=== PATIENT | male | born 1950 | race Caucasian/White ===

== ENCOUNTER 2021-12-21 12:25 | Outpatient (REF) | payer MEDICARE, SELFPAY ==
[2021-12-21 13:44] LABS: Anion Gap 14 (12-20); Blood Urea Nitrogen 16 mg/dL (9-16); Carbon Dioxide 26 mmol/L (22-29); Chloride 106 mmol/L (96-108); Estimated Glomerular Filt Rate > 60; Glucose Fasting 90 mg/dL (60-99); Potassium 5.2 mmol/L (3.3-5.1); Sodium 141 mmol/L (135-145)
[2021-12-21 14:38] LABS: Folate 14.4 ng/mL (> or = 4.0); Vitamin B12 258 pg/mL (200-900)
[2021-12-23 14:37] LABS: IgA 134 mg/dL (70-320); IgG 672 mg/dL (600-1540); IgM 71 mg/dL (50-300)
== END 2021-12-21 12:26 | disposition home or self-care (01) ==
LOC: HO.LAB 12:25
PROVIDERS: PCP Psychiatry & Neurology Neurology; Visit Provider Internal Medicine
DX: G62.9 Polyneuropathy, unspecified (principal)
CPT/HCPCS: 36415; 80048; 82607; 82746; 82784; 86334

== ENCOUNTER 2022-12-22 08:35 | Outpatient (REF) | payer MEDICARE, SELFPAY ==
[2022-12-22 08:57] LABS: MANUAL DIFF FLAG NO
[2022-12-22 09:08] LABS: Basophils Percent Auto 0.6 % (0-2); Eosinophils Absolute Auto 0.1 X10*3/uL (0.0-0.4); Eosinophils Percent Auto 2.8 % (0-4); Hematocrit 39.8 % (42.0-52.0); Hemoglobin 13.4 g/dl (14.0-18.0); Imm Gran Abs Auto 0.02 X10*3/uL (0.00-0.03); Imm Gran Pct Auto 0.4 % (0.0-0.4); Lymphocytes Percent Auto 19.5 % (20-40); Mean Corpuscular HGB Conc 33.7 g/dl (31.0-36.0); Mean Corpuscular Hemoglobin 30.5 pg (27.0-33.0); Mean Corpuscular Volume 90.7 fL (80.0-98.0); Mean Platelet Volume 11.5 fL (9.4-12.4); Monocytes Absolute Auto 0.4 X10*3/uL (0.1-1.2); Monocytes Percent Auto 7.3 % (2-11); Neutrophils Absolute Auto 3.4 x10*3/uL (2.0-8.3); Neutrophils Percent Auto 69.4 % (45-73); Platelet Count 229 X10*3/uL (160-400); Red Blood Count 4.39 X10*6/uL (4.60-5.80); Red Cell Distribution Width 12.4 % (11.0-16.0); White Blood Count 4.9 X10*3/uL (4.8-10.8)
[2022-12-22 10:03] LABS: Blood Urea Nitrogen 9 mg/dL (9-16); Estimated Glomerular Filt Rate > 60
[2022-12-22 10:09] LABS: TSH reflex Free T4 1.02 uIU/mL (0.32-4.0)
== END 2022-12-22 08:36 | disposition home or self-care (01) ==
LOC: HO.LAB 08:35
PROVIDERS: PCP Internal Medicine; Visit Provider Internal Medicine Gastroenterology
DX: K57.33 Diverticulitis of large intestine without perforation or abscess with bleeding (principal); R19.7 Diarrhea, unspecified
CPT/HCPCS: 36415; 82565; 84443; 84520; 85025

== ENCOUNTER 2022-12-25 13:41 | Outpatient (REF) | payer MEDICARE, SELFPAY ==
[2022-12-25 15:08] LABS: Leukocytes Stool Qualitative FEW: < 2/OIF (NEGATIVE)
[2022-12-26 12:34] LABS: Adenovirus F 40/41 Not Detected (Not Detect.); Astrovirus Not Detected (Not Detect.); Campylobacter Not Detected (Not Detect.); Cryptosporidium Not Detected (Not Detect.); Cyclospora cayetanensis Not Detected (Not Detect.); E. coli EAEC Not Detected (Not Detect.); E. coli EPEC Not Detected (Not Detect.); E. coli ETEC Not Detected (Not Detect.); E. coli STEC Not Detected (Not Detect.); Entamoeba histolytica Not Detected (Not Detect.); Giardia lamblia Not Detected (Not Detect.); Norovirus GI/GII Not Detected (Not Detect.); Plesiomonas shigelloides Not Detected (Not Detect.); Rotavirus A Not Detected (Not Detect.); Salmonella Not Detected (Not Detect.); Sapovirus Not Detected (Not Detect.); Shigella sp./EIEC Not Detected (Not Detect.); Vibrio Not Detected (Not Detect.); Vibrio Cholerae Not Detected (Not Detect.); Yersinia enterocolitica Not Detected (Not Detect.)
[2022-12-29 22:49] LABS: Calprotectin, Fecal 545 mcg/g
== END 2022-12-25 13:42 | disposition home or self-care (01) ==
LOC: HO.LNP 13:41
PROVIDERS: Visit Provider Internal Medicine Gastroenterology
DX: K57.33 Diverticulitis of large intestine without perforation or abscess with bleeding (principal); R19.7 Diarrhea, unspecified
CPT/HCPCS: 83993; 87507; 89055

== ENCOUNTER 2023-01-01 12:23 | Outpatient (REF) | payer MEDICARE, SELFPAY ==
--- NOTE | ~2023-01-01 | CT_ITS ---
EXAMINATION: CT ABDOMEN AND PELVIS WITH CONTRAST CLINICAL INFORMATION: Diverticulitis of large intestine COMPARISON: None available. TECHNIQUE: Multidetector volumetric images were obtained from the superior aspect of the liver through the pubic symphysis following administration 85 mL of Omnipaque 350 intravenous contrast. Sagittal and coronal reformatted images were obtained on the technologist's workstation. Oral contrast: No This CT examination was performed using dose optimization techniques as appropriate, variously including the following: *Automated exposure control *Adjustment of mA and/or kV according to patient size (this includes techniques or standardized protocols for targeted exams where dose is matched to indication/reason for exam; i.e. extremities or head) *Use of iterative reconstruction technique DLP: 420 mGy-cm FINDINGS: LUNG BASES: The visualized lung bases are unremarkable. LIVER, GALLBLADDER, AND BILIARY TREE: There are multiple hepatic cysts. Other hepatic low density lesions are presumably cysts, though too small to characterize. The gallbladder is unremarkable with no evidence of radiopaque gallstones, gallbladder wall thickening, or obvious pericholecystic inflammatory changes. There is no biliary ductal dilatation. PANCREAS: Unremarkable. SPLEEN: Unremarkable. ADRENAL GLANDS: Unremarkable. KIDNEYS AND URETERS: The kidneys are normal in size, shape, and attenuation. No hydronephrosis, hydroureter, or calculi seen. No perinephric stranding. BLADDER: Unremarkable. GASTROINTESTINAL TRACT: There is extensive diverticulosis of the descending colon and sigmoid, extending for at least 20 cm. The mid sigmoid is circumferentially thickened. Perisigmoid infiltration is also evident adjacent to numerous diverticula. There are multiple clustered lymph nodes in the subtended sigmoid mesentery, the largest measuring 10 x 8 mm. The small bowel and appendix are unremarkable. The appendix. ABDOMINAL WALL: No significant hernia is appreciated. LYMPH NODES: As described above, there are multiple borderline size lymph nodes in the sigmoid mesentery subtended by the inflammatory process. There are additional mesenteric nodes measuring up to 12 x 10 mm. No upper abdominal or retroperitoneal adenopathy is evident. VASCULAR: Unremarkable. PELVIC VISCERA: Unremarkable. OSSEOUS STRUCTURES: The T11 vertebral body demonstrates coarsened trabecula with a pattern suggestive of intraosseous hemangioma. There are no suspicious bone lesions. Mild degenerative changes are noted in the lower lumbar spine. CT/CT abdomen pelvis w IV con IMPRESSION: 1. Considerable sigmoid diverticulosis with associated perisigmoid infiltration involving approximately 10 cm of mid sigmoid colon, consistent with acute sigmoid diverticulitis. No abscess or drainable collection. 2. Multiple sigmoid and adjacent mesenteric lymph nodes. Although perhaps reactive and related to diverticulitis, the presence of an underlying colonic neoplasm is not excluded particularly given the regional adenopathy. When the patient is clinically able, colonoscopy is recommended. 3. Findings discussed with Virgilio Brady MD at the time of interpretation on 01/04/2023 10:55 AM Fleischner guidelines were followed.
[2023-01-01] MEDS: iohexoL 350 MG/ML 100 ML INFUS..BTL 85 ML IV (14:50)
[2023-01-01] MEDS: Barium Sulfate Oral (Vanilla) 450 ML ORAL.SUSP 900 ML PO (14:51)
== END 2023-01-01 12:24 | disposition home or self-care (01) ==
LOC: HO.CT 12:23
PROVIDERS: PCP Internal Medicine; Visit Provider Internal Medicine Gastroenterology
DX: K57.33 Diverticulitis of large intestine without perforation or abscess with bleeding (principal)
CPT/HCPCS: 74177; Q9967

== ENCOUNTER 2023-01-16 11:00 | Day surgery (SDC) | payer MEDICARE, SELFPAY ==
[2023-01-12 10:04] VITALS: BMI 27.5
--- NOTE | 2023-01-15 08:57 | HO.ANESPROP2 ---
Documented by User: Nohelia Rojas NP 01/15/23 08:58 HPI - Anesthesia Eval Consult details Narrative: 72yo M for Upper Endoscopy and Colonoscopy [facility] Past Medical History Medical History Diverticulosis Barretts esophagus Depression HTN (hypertension) Surgical History Surgical History History of back surgery H/O colonoscopy History of esophagogastroduodenoscopy (EGD) Social History Patient Tobacco Use Status: Never used Tobacco Use of substances other than those prescribed or required for medical reasons: Yes Are you DNR?: No Advance Directives: No Advance Directives Information Provided: Yes Meds Allergies Allergy/AdvReac Type Severity Reaction Status Date / Time No Known Allergies Allergy Verified 01/12/23 09:58 Home Medications Medication Instructions Recorded Confirmed Last Taken Type bupropion HCl 150 mg 24 hr tablet, 150 mg PO QAM 01/12/23 01/12/23 Unknown History extended release carvedilol 25 mg tablet 25 mg PO BID 01/12/23 01/12/23 Unknown History cholecalciferol (vitamin D3) 25 25 mcg PO DAILY 01/12/23 01/12/23 Unknown History mcg (1,000 unit) tablet (Vitamin D3) omeprazole 20 mg capsule,delayed 20 mg PO DAILY 01/12/23 01/12/23 Unknown History release ramipril 10 mg capsule 10 mg PO BID 01/12/23 01/12/23 Unknown History Exam Height,Weight and Vital Signs: Height 5 ft 8 in Weight 82.1 kg Pertinent Lab Results Pertinent Lab Results: Laboratory Tests 12/22/22 08:55 WBC 4.9 Hgb 13.4 L Hct 39.8 L Plt Count 229 Assessment and Plan Assessment Anesthesia Assessment: Chart Reviewed Documented by User: Isela Rendon MD 01/16/23 11:37 [facility] Past Medical History Medical History Diverticulosis Barretts esophagus Depression HTN (hypertension) Surgical History Surgical History History of back surgery H/O colonoscopy History of esophagogastroduodenoscopy (EGD) History of Problems with Anesthesia: No Social History Patient Tobacco Use Status: Never used Tobacco Use of substances other than those prescribed or required for medical reasons: Yes Are you DNR?: No Advance Directives: No Advance Directives Information Provided: Yes Meds Allergies Allergy/AdvReac Type Severity Reaction Status Date / Time No Known Allergies Allergy Verified 01/12/23 09:58 Home Medications Medication Instructions Recorded Confirmed Last Taken Type bupropion HCl 150 mg 24 hr tablet, 150 mg PO QAM 01/12/23 01/12/23 Unknown History extended release carvedilol 25 mg tablet 25 mg PO BID 01/12/23 01/12/23 Unknown History cholecalciferol (vitamin D3) 25 25 mcg PO DAILY 01/12/23 01/12/23 Unknown History mcg (1,000 unit) tablet (Vitamin D3) omeprazole 20 mg capsule,delayed 20 mg PO DAILY 01/12/23 01/12/23 Unknown History release ramipril 10 mg capsule 10 mg PO BID 01/12/23 01/12/23 Unknown History Exam Airway Mallampati Class: II TM Dist: >3cm Neck ROM: Full Loose/Missing/Broken Teeth: No Heart: RRR Lungs: CTA Assessment and Plan Final Anesthetic Review History of Problems with Anesthesia: No NPO: Yes ASA Class: II Final Preanesthetic Review: Meds/Allgs Chart Reviewed, Consent Obtained/Reviewed and Anes Risks/Benef Reviewed Patient Risk: Low Procedure Risk: Intermediate Anesthetic Plan Anesthetic Plan: MAC: Disposition: Standard PACU
[2023-01-16 11:05] VITALS: BMI 26.5
[2023-01-16 11:20] VITALS: BP 147/86; PULSE 54; RESP 18; TEMP 36.1; O2SAT 99
--- NOTE | 2023-01-16 11:21 | P.HPSUR_ITS ---
Pre-Procedural Eval Section A Date of Service: 01/16/23 Section B Chief Complaint: Abnormal findings on diagnostic imaging of other p Details of Present Illness: see H&P no changes Relevant Family History (Specify if Yes): No Relevant Social History: None Present Medications: see Short Stay Collaborative assessment Medical History: No relevant PMH History of Previous Operations: No relevant previous surgery Allergies: Allergies Allergy/AdvReac Type Severity Reaction Status Date / Time No Known Allergies Allergy Verified 01/12/23 09:58 Review of Systems Sugical H&P ROS: Negative: Constitution, Cardiovascular, Respiratory, Neurol ogical, Psychiatric, Hem-Onc, Allergic/Immunologic, Gastrointestinal, Genitourinary, Musculoskeletal, Integumentary, Endocrine and Eyes/Ears/Nose/Throat Exam Surgical H&P Exam: Normal: HEENT, Normal: Heart, Normal: Lungs, Normal: Extremities, Normal: Abdomen, Normal: Skin and Normal: Neurological Plan Diagnosis/Plan: Unchanged I have reviewed the history and physical and performed a pertinent physical examination on my patient. No changes have occurred unless specified. Time Spent With Patient Time: Total time managing care of this patient today ____ minutes.
[2023-01-16] MEDS: Lactated Ringers 1,000 ML 100 ML IVCONT (11:25)
[2023-01-16 12:05] VITALS: BP 116/61; PULSE 49; RESP 18; TEMP 36.7; O2SAT 100
[2023-01-16 12:20] VITALS: BP 124/53; PULSE 53; RESP 18; TEMP 36.7; O2SAT 97
--- NOTE | 2023-01-16 12:46 | OP_ITS ---
DATE OF SERVICE: 01/16/2023 SURGEON: Virgilio Brady MD INDICATIONS: 1. Diverticulitis. 2. Diarrhea. PREOPERATIVE DIAGNOSIS: POSTOPERATIVE DIAGNOSIS: PROCEDURE PERFORMED: Upper endoscopy with biopsy, colonoscopy to the terminal ileum with biopsy. ESTIMATED BLOOD LOSS: COMPLICATIONS: ANESTHESIA: Monitored anesthesia care. ASSISTANTS: SPECIMENS: DESCRIPTION OF PROCEDURE: A history and physical was performed. The risks and benefits of the procedure were explained to the patient. Informed consent was obtained. The patient was placed in the left lateral decubitus position. The Olympus video gastroscope was introduced into the esophagus, stomach, and duodenum. Examination was performed. The scope was removed. He was repositioned for colonoscopy. A digital rectal exam was performed and was found to be normal. The Olympus pediatric video colonoscope was introduced into the rectum and advanced to the cecum. The cecum was identified by transillumination, palpation, and identification of ileocecal valve. Examination was performed. The scope was removed. He tolerated the procedure well and was returned to the recovery area in stable condition. FINDINGS: Upper endoscopy: 1. Esophagus: The esophagus showed an irregular EG junction. This was biopsied. There was no esophagitis. 2. Stomach: Showed multiple benign-appearing gastric polyps, 2 of these were biopsied. Antral biopsies were also obtained to rule out H pylori. 3. Duodenal: The bulb and second portion were normal. Second portion biopsies were obtained. Colonoscopy: The terminal ileum was briefly examined and appeared normal. This was biopsied. The visualized colonic mucosa showed changes of colitis beginning at about 40 cm from the anal verge and extending to the rectum. The changes were patchy and showed erythema, edema, and loss of vascular pattern as well as some punctate ulceration. Biopsies were obtained from the abnormal mucosa and from the remainder of the colon. There was moderate sigmoid diverticulosis. Retroflexed examination showed internal hemorrhoids. IMPRESSION: 1. Gastric polyps. 2. Colitis. RECOMMENDATION: Follow up the biopsy results. MD LINDA Connolly/JONYL / [id number]
== END 2023-01-16 13:05 | disposition home or self-care (01) ==
PROVIDERS: PCP Internal Medicine; Visit Provider Internal Medicine Gastroenterology
PROC: (CPT 43239; principal; 2023-01-16 13:00)
DX: K31.7 Polyp of stomach and duodenum (principal); K22.9 Disease of esophagus, unspecified; K52.9 Noninfective gastroenteritis and colitis, unspecified; K57.30 Diverticulosis of large intestine without perforation or abscess without bleeding; K64.8 Other hemorrhoids; K62.5 Hemorrhage of anus and rectum; R93.3 Abnormal findings on diagnostic imaging of other parts of digestive tract; K22.70 Barrett's esophagus without dysplasia; Z86.010 Personal history of colon polyps; I10 Essential (primary) hypertension
CPT/HCPCS: 43239; 45380; 88305; 88342; J2704

== ENCOUNTER 2023-03-21 10:23 | Outpatient (REF) | payer MEDICARE, SELFPAY ==
[2023-03-21 11:10] LABS: MANUAL DIFF FLAG NO
[2023-03-21 11:21] LABS: Basophils Percent Auto 0.4 % (0-2); Eosinophils Absolute Auto 0.1 X10*3/uL (0.0-0.4); Eosinophils Percent Auto 1.1 % (0-4); Hematocrit 39.2 % (42.0-52.0); Imm Gran Abs Auto 0.02 X10*3/uL (0.00-0.03); Imm Gran Pct Auto 0.4 % (0.0-0.4); Lymphocytes Percent Auto 20.8 % (20-40); Mean Corpuscular HGB Conc 33.2 g/dl (31.0-36.0); Mean Corpuscular Hemoglobin 30.1 pg (27.0-33.0); Mean Corpuscular Volume 90.7 fL (80.0-98.0); Mean Platelet Volume 11.6 fL (9.4-12.4); Monocytes Absolute Auto 0.4 X10*3/uL (0.1-1.2); Monocytes Percent Auto 8.4 % (2-11); Neutrophils Absolute Auto 3.2 x10*3/uL (2.0-8.3); Neutrophils Percent Auto 68.9 % (45-73); Platelet Count 193 X10*3/uL (160-400); Red Blood Count 4.32 X10*6/uL (4.60-5.80); Red Cell Distribution Width 12.2 % (11.0-16.0); White Blood Count 4.7 X10*3/uL (4.8-10.8)
[2023-03-21 11:54] LABS: Alanine Aminotransferase 14 U/L (0-40); Albumin Level 3.9 g/dL (3.5-5.0); Alkaline Phosphatase 72 U/L (39-117); Aspartate Amino Transferase 14 U/L (5-37); Bilirubin Direct 0.2 mg/dL (0.0-0.5); Bilirubin Total 0.7 mg/dL (0.0-1.0); Blood Urea Nitrogen 14 mg/dL (9-16); Estimated Glomerular Filt Rate > 60; Lipase 12 U/L (8-78); Total Protein 6.2 g/dL (6.5-8.0)
[2023-03-21 12:28] LABS: Erythrocyte Sedimentation Rate 5 MM/HR (0-15)
== END 2023-03-21 10:24 | disposition home or self-care (01) ==
LOC: HO.10HDL 10:23
PROVIDERS: Visit Provider Internal Medicine Gastroenterology
DX: K52.9 Noninfective gastroenteritis and colitis, unspecified (principal); R10.32 Left lower quadrant pain
CPT/HCPCS: 36415; 80076; 82565; 83690; 84520; 85025; 85652; 86140

== ENCOUNTER 2023-03-22 09:35 | Outpatient (REF) | payer MEDICARE, SELFPAY ==
[2023-03-27 22:12] LABS: Calprotectin, Fecal 103 mcg/g
== END 2023-03-22 09:36 | disposition home or self-care (01) ==
LOC: HO.LNP 09:35
PROVIDERS: Visit Provider Internal Medicine Gastroenterology
DX: K52.9 Noninfective gastroenteritis and colitis, unspecified (principal)
CPT/HCPCS: 83993

== ENCOUNTER 2023-03-26 12:00 | Outpatient (REF) | payer MEDICARE, SELFPAY ==
--- NOTE | ~2023-03-26 | CT_ITS ---
EXAMINATION: CT ABDOMEN AND PELVIS WITH CONTRAST CLINICAL INFORMATION: Colitis, left lower quadrant pain COMPARISON: 01/01/2023 TECHNIQUE: Multidetector volumetric images were obtained from the superior aspect of the liver through the pubic symphysis following administration 85 mL of Omnipaque 350 intravenous contrast. Sagittal and coronal reformatted images were obtained on the technologist's workstation. Oral contrast: No This CT examination was performed using dose optimization techniques as appropriate, variously including the following: *Automated exposure control *Adjustment of mA and/or kV according to patient size (this includes techniques or standardized protocols for targeted exams where dose is matched to indication/reason for exam; i.e. extremities or head) *Use of iterative reconstruction technique DLP: 389 mGy-cm FINDINGS: TIGHT ROPE WALKER: Nonobstructive bowel pattern. LUNG BASES: The visualized lung bases are unremarkable. Nonenlarged heart. No pericardial effusion. LIVER, GALLBLADDER, AND BILIARY TREE: The liver is normal in size, shape, and attenuation. Multiple low-density hepatic lesions again seen, largest measuring 2.1 cm with Hounsfield units consistent with cyst. No biliary ductal dilatation is present. The gallbladder is unremarkable with no evidence of radiopaque gallstones, gallbladder wall thickening, or obvious pericholecystic inflammatory changes. PANCREAS: Unremarkable. SPLEEN: Unremarkable. ADRENAL GLANDS: Unremarkable. KIDNEYS AND URETERS: The kidneys are normal in size, shape, and attenuation. No hydronephrosis or calculi seen. Too small to characterize bilateral renal hypodensities, likely cysts. No perinephric stranding. Mild mid to distal left ureteral prominence with question mild distal ureteral thickening, coronal 44/84. BLADDER: Diffuse thickening decompressed urinary bladder. GASTROINTESTINAL TRACT: Decompressed stomach likely accounting for wall thickening. No obstruction. Thickened terminal ileum likely due to under distention. No surrounding inflammatory change. Diffuse thickening of diverticular laden colon. Improved pericolonic inflammatory changes since previous study. ABDOMINAL WALL: Bilateral small fat filled inguinal hernias, left greater than right. LYMPH NODES: No pathologic retroperitoneal lymphadenopathy. Nonspecific mesenteric lymph nodes. VASCULAR: Mild atherosclerotic calcifications and soft plaque aorta and iliac arteries. Unremarkable inferior vena cava and iliac veins. Patent portal system. Mild prominence left mid to distal ureter. Mild distal left ureteral thickening not excluded, coronal 44/84. PELVIC VISCERA: Mildly prominent heterogeneous prostate with calcification. OSSEOUS STRUCTURES: T11 hemangioma. No suspicious osseous lesions. CT/CT abdomen pelvis w IV con IMPRESSION: Improved pericolonic inflammatory changes with persistent long segment sigmoid colonic thickening in the setting of extensive diverticulosis. Suspect smoldering diverticulitis. Mild left mid to distal ureteral prominence. Distal left ureteral thickening not excluded. Decompressed mildly thick-walled urinary bladder. Prominent heterogeneous calcification containing prostate. Follow-up of findings as clinically indicated. Hepatic and renal cysts. Fleischner guidelines were followed.
[2023-03-26] MEDS: iohexoL 350 MG/ML 75 ML INFUS..BTL 85 ML IV (14:58)
[2023-03-26] MEDS: Barium Sulfate Oral (Berry) 450 ML ORAL.SUSP 900 ML PO (14:58)
== END 2023-03-26 12:01 | disposition home or self-care (01) ==
LOC: HO.CT 12:00
PROVIDERS: Visit Provider Internal Medicine Gastroenterology
DX: R10.32 Left lower quadrant pain (principal); K52.9 Noninfective gastroenteritis and colitis, unspecified
CPT/HCPCS: 74177; Q9967

== ENCOUNTER 2024-01-02 10:20 | Outpatient (REF) | payer MEDICARE, SELFPAY ==
[2024-01-02 11:06] LABS: Hematocrit 36.4 % (42.0-52.0); Hemoglobin 12.3 g/dl (14.0-18.0); Mean Corpuscular HGB Conc 33.8 g/dl (31.0-36.0); Mean Corpuscular Hemoglobin 30.3 pg (27.0-33.0); Mean Corpuscular Volume 89.7 fL (80.0-98.0); Mean Platelet Volume 10.8 fL (9.4-12.4); Platelet Count 247 X10*3/uL (160-400); Red Blood Count 4.06 X10*6/uL (4.60-5.80); Red Cell Distribution Width 12.2 % (11.0-16.0)
[2024-01-02 12:06] LABS: Alanine Aminotransferase 23 U/L (0-40); Albumin Level 3.9 g/dL (3.5-5.0); Aspartate Amino Transferase 26 U/L (5-37); Bilirubin Direct 0.1 mg/dL (0.0-0.5); Bilirubin Total 0.4 mg/dL (0.0-1.0); Blood Urea Nitrogen 13 mg/dL (9-16); Estimated Glomerular Filt Rate > 60; Lipase 13 U/L (8-78); Total Protein 6.3 g/dL (6.5-8.0)
[2024-01-02 12:42] LABS: Alkaline Phosphatase 67 U/L (39-117)
== END 2024-01-02 10:21 | disposition home or self-care (01) ==
LOC: HO.LAB 10:20
PROVIDERS: PCP Internal Medicine; Visit Provider Internal Medicine Gastroenterology
DX: R10.32 Left lower quadrant pain (principal)
CPT/HCPCS: 36415; 80076; 82565; 83690; 84520; 85027

== ENCOUNTER 2024-01-10 13:28 | Outpatient (REF) | payer MEDICARE, SELFPAY ==
--- NOTE | ~2024-01-10 | CT_ITS ---
EXAMINATION: CT ABDOMEN AND PELVIS WITH CONTRAST CLINICAL INFORMATION: Left lower quadrant pain. COMPARISON: CT dated March 26, 2023. TECHNIQUE: Multidetector volumetric images were obtained from the superior aspect of the liver through the pubic symphysis following administration 85 mL of Omnipaque 350 intravenous contrast. Sagittal and coronal reformatted images were obtained on the technologist's workstation. Oral contrast: No This CT examination was performed using dose optimization techniques as appropriate, variously including the following: *Automated exposure control *Adjustment of mA and/or kV according to patient size (this includes techniques or standardized protocols for targeted exams where dose is matched to indication/reason for exam; i.e. extremities or head) *Use of iterative reconstruction technique DLP: 407 mGy-cm FINDINGS: LUNG BASES: No acute airspace disease or gross pulmonary nodules in the included lungs. LIVER, GALLBLADDER, AND BILIARY TREE: Liver measures 16 cm. Multifocal well-defined fluid density lesions throughout its parenchyma, the largest measures 2.5 cm in the dome left hepatic lobe. There is a 1.5 cm portal venous phase enhancing lesion in the periphery of the posterior right hepatic lobe. Portal vein and hepatic veins are patent. Intrahepatic portion of the IVC is patent. Contracted gallbladder. No pericholecystic fluid collection or gallbladder wall thickening. Common bile duct measures 4 m. PANCREAS: No focal mass. No peripancreatic fluid collection. No main pancreatic ductal dilatation. There is a dystrophic calcifications in the mid splenic artery with a contour irregularity. SPLEEN: 10 cm. No focal mass. ADRENAL GLANDS: No nodular lesions. KIDNEYS AND URETERS: No gross renal mass or hydronephrosis. Multifocal and scattered different sizes fluid density lesions likely cyst.. BLADDER: Fluid-filled. GASTROINTESTINAL TRACT: Numerous diverticula in the sigmoid colon and to a lesser extent descending colon. There is a segmental pericolonic edema pattern and asymmetry wall thickening involving the mid sigmoid colon. There is no pneumoperitoneum or peripheral enhancing fluid collection in the pelvic peritoneal cavity. Prominent nonspecific lymph nodes likely reactive No intestinal obstruction pattern. Abundant stool within the large intestine. No pneumatosis intestinalis. No pneumoperitoneum. No ascites. Appendix is normal. ABDOMINAL WALL: Small fat-containing umbilical hernia. Small fat-containing left inguinal hernia. LYMPH NODES: Prominent likely reactive mesenteric and retroperitoneal lymph nodes. VASCULAR: Some the abdominal aorta wall and iliac arteries. No aneurysm or dissection, abdominal aorta. PELVIC VISCERA: The prostate gland and seminal vesicles are not enlarged. Punctate calcification in the prostate gland. OSSEOUS STRUCTURES: Multilevel thoracolumbar spondylosis. Trabeculated lesion at T11. Grade 1 retrolisthesis L1 to, L3-4 and L4-5 likely degenerative. No acute fracture. CT/CT abdomen pelvis w IV con IMPRESSION: Acute noncomplicated sigmoid colon diverticulitis resulting in prominent likely reactive mesenteric and retroperitoneal lymph nodes. Multifocal hepatitis cystic lesions and a focal flash hemangioma in the posterior right hepatic lobe Bilateral renal cysts. 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 Small fat-containing umbilical hernia. Intraosseous hemangioma, T11.. Fleischner guidelines were followed. Electronically signed by: Pj Dykes MD 01/11/2024 02:50 PM JOSEY
[2024-01-10] MEDS: iohexoL 350 MG/ML 100 ML INFUS..BTL 85 ML IV (16:21)
[2024-01-10] MEDS: Barium Sulfate Oral (Berry) 450 ML ORAL.SUSP 900 ML PO (16:23)
== END 2024-01-10 13:29 | disposition home or self-care (01) ==
LOC: HO.CT 13:28
PROVIDERS: PCP Internal Medicine; Visit Provider Internal Medicine Gastroenterology
DX: R10.32 Left lower quadrant pain (principal)
CPT/HCPCS: 74177; Q9967

== ENCOUNTER → 2024-01-10 13:30 | Outpatient (BNV) | payer MEDICARE, SELFPAY | PROVIDERS: PCP Internal Medicine; Visit Provider Radiology Diagnostic Radiology | DX: R10.32 Left lower quadrant pain (principal) | CPT/HCPCS: 74177 ==

== ENCOUNTER 2024-03-19 11:16 | Outpatient (REF) | payer MEDICARE, SELFPAY ==
--- OUTSIDE RECORDS SUMMARY | 2024-03-19 13:02 | XMS_ITS | Clinical Summary ---
Author Organization [address] [facility] Address [address] [place] [address] Phone Care Team Providers Care Varnish Maker Helper Name Role Phone Sergo Nation MD Primary Care Provider [phone] Allergies No known active allergies Medications Medication Sig Dispensed Refills Start Date End Date Status cyanocobalamin (VITAMIN B-12) 2,000 mcg tablet Take 1 tablet (2,000 mcg total) by mouth 1 (one) time each day. 11/16/2023 Active omeprazole (PriLOSEC) [address] capsule Take 1 capsule (20 mg total) by mouth 1 (one) time each day. 11/12/2023 Active predniSONE (DELTASONE) 10 mg tablet 3 tabs po x 3 days then 2 tabs po x 3 days the one tab po x 3 days 10/26/2023 Active amLODIPine (NORVASC) 5 mg tablet Take 1 tablet (5 mg total) by mouth 1 (one) time each day. 08/09/2023 Active mesalamine (APRISO) 0.375 gram 24 hr capsule Take 1 capsule (0.375 g total) by mouth 4 (four) times a day. 04/12/2023 Active cholecalciferol (VITAMIN D-3) 25 mcg (1,000 unit) tablet Take by mouth daily. Active fluticasone propionate (FLONASE) 50 mcg/actuation nasal spray Administer 2 sprays into each nostril 1 (one) time each day if needed. 11/09/2020 Active valsartan (DIOVAN) 320 mg tablet TAKE 1 TABLET BY MOUTH DAILY 30 tablet 5 02/05/2024 Active carvediloL (COREG) 25 mg tablet Take 1 tablet (25 mg total) by mouth 2 (two) times a day with meals. 180 tablet 02/05/2024 Active buPROPion XL (WELLBUTRIN XL) 150 mg 24 hr tablet Take 1 tablet (150 mg total) by mouth 1 (one) time each day in the morning. 90 tablet 02/22/2024 Active zolpidem (AMBIEN) 10 mg tablet Take 1 tablet (10 mg total) by mouth at bedtime as needed for sleep for up to 28 days. at bedtime Max Daily Amount: 10 mg 28 tablet 02/25/2024 03/24/2024 Active buPROPion XL (WELLBUTRIN XL) 150 mg 24 hr tablet Take 1 tablet (150 mg total) by mouth 1 (one) time each day in the morning. 11/20/2023 02/19/2024 Discontinue d(Reorder) zolpidem (AMBIEN) 10 mg tablet TAKE ONE TABLET BY MOUTH DAILY AT BEDTIME NEEDED FOR INSOMNIA 28 tablet 01/25/2024 02/25/2024 Discontinue d(Reorder) Active Problems Problem Noted Date Diagnosed Date Anxiety 12/17/2023 Reddy's esophagus 12/17/2023 GERD (gastroesophageal reflux disease) HTN (hypertension) 12/17/2023 Overview (12/17/2023): Last Assessment & Plan: Pressure continues to be poorly controlled despite verapamil and carvedilol. Blood pressure today 160/96 which correlates with the readings the patient has been getting at home. I have added in 5 mg of amlodipine to his antihypertensive medication regime. I educated the patient on the importance of diet lifestyle modification to help further assist with lowering blood pressure. He was encouraged to follow a low-salt low-fat diet, decrease his caffeine intake, make purposeful strides towards weight loss and engage in routine aerobic exercise. I have asked him to monitor his blood pressure 3-4 times per week over the next 2 weeks and to send those readings in on the portal. Should he continue to have elevated blood pressures despite 3 antihypertensive agents, we could consider renal artery duplex. Insomnia 12/17/2023 Low back pain 12/17/2023 EDOUARD (obstructive sleep apnea) 12/17/2023 Overview (12/17/2023): dental appliance helping Chest pain 05/17/2023 Overview (12/17/2023): Last Assessment & Plan: Patient endorses episodes of central chest pain which radiates to his left chest and shoulder. This can happen at rest or with exertion. He also endorses increased fatigue and decreased activity tolerance over the past 6 months. He has not had an ischemic evaluation in 4 years. Subsequently I am going to order a stress echocardiogram to further evaluate for ischemia. Patient instructed to call 911 or go to the emergency room should begin to experience chest pain lasting greater than 10 minutes that is not resolved with rest. Ocular migraine 05/07/2020 Visual disturbance 05/07/2020 Obesity (BMI 30-39.9) 10/01/2017 Dyslipidemia 01/27/2016 Vitamin D deficiency 01/27/2016 Paroxysmal atrial fibrillation 10/26/2015 Major depressive disorder, single episode, moder ate 02/05/2014 Anemia 08/25/2013 Colon polyp 03/10/2013 Encounters Date Type Department Care Team Description 03/12/2024 Telephone [facility] - [address] [place] [address] Hernando Méndez MD Procedure (Cardiac clearance for colonoscopy ) 01/07/2024 Nurse Triage Adult Medicine [address] [phone] Gris Mueller PA from Last 3 Months Immunizations Name Administration Dates Next Due Influenza Quadravalent, MDCK , 0.5ml, with preservative (Flucelvax) 6mo and older 11/09/2016 Influenza trivalent, 0.5mL ( Fluad) 65yo and older 11/11/2021,11/28/2020,11/26/2019,12/25 Influenza trivalent, 0.5mL, preservative free (Fluarix; FluLaval; Fluzone) ages 6mo and older (Afluria) 3 years and older 12/14/2015,11/12/2014,11/27/2012 Influenza, Unspecified 12/19/2018,11/06/2013 Pfizer SARS-CoV-2 COVID-19, mRNA, LNP-S, preservative free 11/21/2020,04/26/2020,04/20/2020,04/19 Pneumococcal conjugate 13 va lent (Prevnar 13, PCV13) 2mo and older 01/01/2019 Pneumococcal polysaccharide 23 valent (Pneumovax 23) 2yo and older 04/18/2021 Tdap Tetanus diptheria acell ular pertussis (Boostrix; Adacel) 7yo and older 04/20/2015 Zoster recombinant (Shingrix ) 19yo and older 09/21/2021,06/19/2021 Surgical History Surgery Date Site/Laterality Comments COLONOSCOPY PROCEDURE: [place] COLONOSCOPY STOMA DX INCLUDING COLLJ SPEC SPX; COMMENT: age 60 TONSILLECTOMY PROCEDURE: HISTORICAL TONSILLECTOMY BACK SURGERY 08/2013 PROCEDURE: HISTORICAL BACK SURGERY; COMMENT: L4-5 decompression surgery, Dr Valentine. Medical History Medical History Date Comments EDOUARD (obstructive sleep apnea) DX :EDOUARD (obstructive sleep apnea); COMMENT: dental appliance helping HTN (hypertension) DX:HTN (hyper tension) Low back pain DX:Low back pain ; COMMENT: [employer] sport injection therapy GERD (gastroesophageal reflux disease) DX:GERD (gastroesophageal reflux disease); COMMENT: Anxiety DX:Anxiety Insomnia DX:Insomnia Reddy's esophagus DX:Reddy's esophagus; COMMENT: Medical marijuana use DX:Medical marijuana use Actinic keratosis, hx of DX:Acti roxanne keratosis, hx of Family History Medical History Relation Name Comments Coronary artery disease Mother Autoimmune disease Neg Hx Breast cancer Neg Hx Colon cancer Neg Hx Diabetes Neg Hx Heart attack Neg Hx Heart failure Neg Hx Hyperlipidemia Neg Hx Hypertension Neg Hx Mental illness Neg Hx Prostate cancer Neg Hx Sleep apnea Neg Hx Thyroid disease Neg Hx Relation Name Status Comments Mother in her 50s Social History Tobacco Use Types Packs/Day Years Used Date Smoking Tobacco: Never Smokeless Tobacco: Never Alcohol Use Standard Drinks/Week Comments Yes 0 (1 standard drink = 0.6 oz pur e alcohol) Sex and Gender Information Value Date Recorded Sex Assigned at Male 04/25/2022 1:01 AM EST Gender Identity Male 04/25/2022 1:01 AM EST Sexual Orientation Straight 04/25/2022 1: 01 AM EST Job Start Date Occupation Industry Not on file Not on file Not on file Obstetrics History Last Filed Vital Signs Vital Sign Reading Time Taken Comments Blood Pressure 134/74 10/31/2023 11:34 AM EDT Pulse 58 10/31/2023 11:34 AM EDT Temperature - - Respiratory Rate - - Oxygen Saturation - - Inhaled Oxygen Concentration - - Weight 85.3 kg (188 lb) 10/31/2023 11:34 AM EDT Height 172.7 cm (5' 8 ) 05/17/2023 10:35 AM EDT Body Mass Index 28.59 05/17/2023 10:35 AM EDT Plan of Treatment Upcoming Encounters Date Type Department Care Team (Late st Contact Info) Description 05/02/2024 9:45 AM EST Office Visit Adult Medicine [facility] [address] [place] [phone] Sergo Nation MD [address] [place] [address] [phone] Health Maintenance Due Date Last Done Comments RSV Immunization Patients 60+ Years Old (1 - Risk 60-74 years 1-dose series) 2012 Social Influencers of Health Screening 02/04/2022 COVID-19 Vaccine ( season) 2023 06/08/2021, 11/21/2020, 05/13/2020, Additional history exists Depression Screening 10/25/2024 10/26/2023 Falls Risk Assessment 10/25/2024 10/26/2023 Hypertension/CHF/CAD Annual BMP Blood Test 10/25/2024 10/26/2023, 10/26/2023 Medicare Annual Wellness Visit 10/25/2024 10/26/2023 DTaP,Tdap,and Td Vaccines (2 - Td or Tdap) 04/20/2025 04/20/2015 Cholesterol Screening (Lipid Panel) 10/24/2027 10/23/2022 Colorectal Cancer Screening: Colonoscopy 01/16/2033 01/16/2023 Hepatitis C Screening Completed 12/02/2012 Pneumococcal Vaccine: 65+ Years Completed 04/18/2021, 01/01/2019 Zoster Vaccines Completed 09/21/2021, 06/19/2021 Influenza Vaccine Completed 11/17/2023, , 11/11/2021, Additional history exists HIB Vaccines Aged Out No longer eligi ble based on patient's age to complete this topic HPV Vaccines Aged Out No longer eligi ble based on patient's age to complete this topic Hepatitis A Vaccines Aged Out No long er eligible based on patient's age to complete this topic Hepatitis B Vaccines Aged Out No long er eligible based on patient's age to complete this topic IPV Vaccines Aged Out No longer eligi ble based on patient's age to complete this topic MMR Vaccines Aged Out No longer eligi ble based on patient's age to complete this topic Meningococcal ACWY Vaccine Aged Out N o longer eligible based on patient's age to complete this topic RSV Immunization Patients Under 20 months Aged Out No longer eligible based on patient's age to complete this topic Varicella Vaccines Aged Out No longer eligible based on patient's age to complete this topic Procedures Procedure Name Priority Date/Time Associated Diagnosis Comments EXTERNAL CT REPORT 01/10/2024 DEPRESSION SCREENING Routine 10/26/2023 ANNUAL BMP BLOOD TEST Routine 10/26/2023 FALLS RISK ASSESSMENT Routine 10/26/2023 COLONOSCOPY Routine 01/16/2023 LIPID PANEL Routine 10/23/2022 HEPATITIS C SCREENING Routine 12/02/2012 from Last 3 Months or Most Recently Relevant to Health Maintenance Results * External CT Report (01/10/2024) Anatomical Region Laterality Modality Computed Tomogra phy Provider Onbase MD TERRY CT PROCEDURES * Annual BMP Blood Test (10/26/2023) Annual BMP Blood Test abstracted Historical Provider MD MARTIN BORDEN E * Falls Risk Assessment (10/26/2023) Falls Risk Assessment abstracted Historical Provider MD MARTIN BORDEN * Depression Screening (10/26/2023) [facility] Depression Screening abstracted Historical Provider [facility] MICHI E * Colonoscopy (01/16/2023) [facility] Colonoscopy no interpretation , abstracted Anatomical Region Laterality Modality Other Historical Provider MD MARTIN BORDEN E * (ABNORMAL) Lipid panel (10/23/2022) [facility] LDL/HDL Ratio 5(A) 0 - 4 Triglycerides 146 0 - 150 mg/dL Cholesterol 170 0 - 200 mg/dL HDL 34(A) 40 mg/dL LDL Cholesterol 107(A) 0 - 100 mg/dL Blood Venous blood specimen / Unknown Historical Provider LAB BLOOD ORDERAB LES * Hepatitis C Screening (12/02/2012) [facility] Hepatitis C Screening abstracted Historical Provider MD SALAZAR ADYJACOBY E from Last 3 Months or Most Recently Relevant to Health Maintenance Care Teams Varnish Maker Helper Relationship Specialty Start Date End Date Sergo Nation MD PCP - General Internal Medicine 09/17/20
--- OUTSIDE RECORDS SUMMARY | 2024-03-19 13:02 | XMS_ITS | Encounter Summary ---
Author Organization [facility] [place] [address] Care Team Providers Care Cat Driver Name Role Phone Sergo Nation MD Primary Care Provider [phone] Reason for Visit * Reason Onset Date Comments Procedure 03/12/2024 Cardiac clearanc e for colonoscopy Encounter Details Date Type Department Care Team ([facility] Contact Info) Description 03/12/2024 Telephone [facility] - [facility] [address] [facility] [address] [place] [phone] Hernando Méndez MD [address] [facility] [address] [place] [address] Procedure (Cardiac clearance for colonoscopy ) Social History Tobacco Use Types Packs/Day Years [...] file Not on file Not on file documented as of this encounter Progress Notes * Osman Whipple MA - 03/12/2024 3:58 PM EST Sade aware of [employer] message and confirmed fax #. Sending message thread to her office per request. * Dori Raymundo NP - 03/12/2024 12:23 PM EST You can inform Dr. Brady's office that the patient had a recent stress test which was negative for ischemia. * Osman Whipple MA - 03/12/2024 11:15 AM EST I called and spoke with Sade from Dr. Brady's office and I explained to Sade that we do not typically need to give cardiac clearance for routine colonoscopies. Pt is not on any blood thinners. She did confirm she was aware of that but [facility] the site where they are doing to colonoscopy is asking for something in writing from the forge press operator stating pt's heart is healthy enough for the colonoscopy. I did state I would send this on. Sade did express understanding. Last OV was with Dori in 04/2023 Please advise. Thank you. * Nya Lowery MA - 03/12/2024 10:44 AM EST Sade from [facility] called. The patient is having a colonoscopy on 03/25/[address] Brady is looking for cardiac clearance. Please advise. documented in this encounter Plan of Treatment Upcoming Encounters Date Type Department Care Team (Late st Contact Info) Description 05/02/2024 9:45 AM EST Office Visit Adult Medicine [address] [phone] Sergo Nation MD [address] [place] [phone] documented as of this encounter Visit Diagnoses Not on filedocumented in this encounter Care Teams Cat Driver Relationship Specialty Start Date End Date Sergo Nation MD PCP - General Internal Medicine 09/17/20 documented as of this encounter
== END 2024-03-19 11:17 | disposition home or self-care (01) ==
LOC: HO.LAB 11:16
PROVIDERS: PCP Internal Medicine; Visit Provider Internal Medicine Gastroenterology
DX: Z13.89 Encounter for screening for other disorder (principal)

== ENCOUNTER 2024-03-19 14:00 | Outpatient (REF) | payer MEDICARE, SELFPAY ==
[2024-03-19 17:23] LABS: Leukocytes Stool Qualitative NEGATIVE (NEGATIVE)
[2024-03-19 17:25] LABS: CDIFF Internal ctrl Dots and bkg OK (V); CDiff Gene PCR POSITIVE (Negative); CDiff Toxin Negative (Negative)
--- OUTSIDE RECORDS SUMMARY | 2024-03-19 17:35 | XMS_ITS | Clinical Summary ---
Author Organization [address] [facility] Address [address] [place] [address] Phone Care Team Providers Care Hatch Tender Name Role Phone Sergo Nation MD Primary Care Provider [phone] Allergies No known active allergies Medications Medication [...] Type Department Care Team Description 03/12/2024 Telephone [facility] [address] [place] [address] Heranndo Méndez MD Procedure (Cardiac clearance for colonoscopy ) 01/07/2024 Nurse Triage Adult Medicine [address] [phone] Gris Mueller PA from Last 3 Months [...] back pain DX:Low back pain ; COMMENT: [employer] sport injection therapy GERD (gastroesophageal reflux disease) DX:GERD (gastroesophageal reflux disease); COMMENT: Anxiety DX:Anxiety Insomnia DX:Insomnia Redyd's esophagus DX:Reddy's esophagus; COMMENT: Medical marijuana use [...] 9:45 AM EST Office Visit Adult Medicine [facility] [address] [place] [phone] Sergo Nation MD [address] [place] [address] [phone] Health Maintenance Due Date Last Done Comments [...] MD MARTIN BORDEN * Depression Screening (10/26/2023) [facility] Depression Screening abstracted Historical Provider [facility] MICHI E * Colonoscopy (01/16/2023) [facility] Colonoscopy no interpretation , abstracted Anatomical Region Laterality Modality Other Historical Provider MD MARTIN BORDEN E * (ABNORMAL) Lipid panel (10/23/2022) [facility] LDL/HDL Ratio 5(A) 0 - 4 Triglycerides 146 0 - 150 mg/dL Cholesterol 170 0 - 200 mg/dL HDL 34(A) 40 mg/dL LDL Cholesterol 107(A) 0 - 100 mg/dL Blood Venous blood specimen / Unknown Historical Provider LAB BLOOD ORDERAB LES * Hepatitis C Screening (12/02/2012) [facility] Hepatitis C Screening abstracted Historical Provider MD SALAZAR ADYJACOBY E from Last 3 Months or Most Recently Relevant to Health Maintenance Care Teams Hatch Tender Relationship Specialty Start Date End Date Sergo Nation MD PCP - General Internal Medicine 09/17/20
--- OUTSIDE RECORDS SUMMARY | 2024-03-19 17:35 | XMS_ITS | Encounter Summary ---
Author Organization [facility] [place] [address] Care Team Providers Care Manager Emergency Department Name Role Phone Sergo aNtion MD Primary Care Provider [phone] Reason for Visit * Reason Onset Date Comments Procedure 03/12/2024 Cardiac clearanc e for colonoscopy Encounter Details Date Type Department Care Team ([facility] Contact Info) Description 03/12/2024 Telephone [facility] - [facility] [address] [facility] [address] [place] [phone] Hernando Méndez MD [address] [facility] [address] [place] [address] Procedure (Cardiac clearance for colonoscopy ) Social [...] 03/12/2024 3:58 PM EST Sade aware of [employer] message and confirmed fax #. Sending message [...] confirm she was aware of that but [facility] the site where they are doing to colonoscopy is asking for something in writing from the home worker stating pt's heart is healthy enough for the colonoscopy. I did state I would send this on. Sade did express understanding. Last OV was with Dori in 04/2023 Please advise. Thank you. * Nya Lowery MA - 03/12/2024 10:44 AM EST Sade from [facility] called. The patient is having a colonoscopy on 03/25/[address] Brady is looking for cardiac clearance. Please advise. documented in this encounter Plan of Treatment Upcoming Encounters Date Type Department Care Team (Late st Contact Info) Description 05/02/2024 9:45 AM EST Office Visit Adult Medicine [address] [phone] Sergo Nation MD [address] [place] [phone] documented as of this encounter Visit Diagnoses Not on filedocumented in this encounter Care Teams Manager Emergency Department Relationship Specialty Start Date End Date Sergo Nation MD PCP - General Internal Medicine 09/17/20 documented as of this encounter
[2024-03-20 10:18] LABS: Adenovirus F 40/41 Not Detected (Not Detect.); Astrovirus Not Detected (Not Detect.); Campylobacter Not Detected (Not Detect.); Cryptosporidium Not Detected (Not Detect.); Cyclospora cayetanensis Not Detected (Not Detect.); E. coli EAEC Not Detected (Not Detect.); E. coli EPEC Not Detected (Not Detect.); E. coli ETEC Not Detected (Not Detect.); E. coli STEC Not Detected (Not Detect.); Entamoeba histolytica Not Detected (Not Detect.); Giardia lamblia Not Detected (Not Detect.); Norovirus GI/GII Not Detected (Not Detect.); Plesiomonas shigelloides Not Detected (Not Detect.); Rotavirus A Not Detected (Not Detect.); Salmonella Not Detected (Not Detect.); Sapovirus Not Detected (Not Detect.); Shigella sp./EIEC Not Detected (Not Detect.); Vibrio Not Detected (Not Detect.); Vibrio Cholerae Not Detected (Not Detect.); Yersinia enterocolitica Not Detected (Not Detect.)
== END 2024-03-19 14:01 | disposition home or self-care (01) ==
LOC: HO.LNP 14:00
PROVIDERS: Visit Provider Internal Medicine Gastroenterology
DX: K52.9 Noninfective gastroenteritis and colitis, unspecified (principal)
CPT/HCPCS: 87177; 87209; 87324; 87493; 87507; 89055

== ENCOUNTER 2024-03-25 10:34 | Day surgery (SDC) | payer MEDICARE, SELFPAY ==
--- NOTE | 2024-03-24 12:20 | P.CONAN_ITS ---
Documented by User: Nohelia Rojas NP 03/24/24 12:25 HPI - Anesthesia Eval Consult details Narrative: 73yo M for Colonoscopy [facility] Past Medical History Medical History (Updated 03/25/24 @ 11:00 by Lola Dumont RN) Sleep apnea Diverticulosis Barretts esophagus Depression HTN (hypertension) Surgical History Surgical History (Updated 03/25/24 @ 10:59 by Lola Dumont RN) History of tonsillectomy History of back surgery H/O colonoscopy History of esophagogastroduodenoscopy (EGD) History of Problems with Anesthesia: No Social History Social History Patient Tobacco Use Status: Never used Tobacco Use of substances other than those prescribed or required for medical reasons: Yes Are you DNR?: No Advance Directives: No Advance Directives Information Provided: Yes Recently lost weight without trying: No Nutrition Risks: No Nutritional Risk Poor oral hygiene: No Meds Allergies Allergy/AdvReac Type Severity Reaction Status Date / Time No Known Allergies Allergy Verified 01/12/23 09:58 Home Medications ?Medication ?Instructions ?Recorded ?Confirmed ?Last Taken ?Type bupropion HCl 150 mg 24 hr tablet, 150 mg PO QAM 01/12/23 01/12/23 Unknown History extended release carvedilol 25 mg tablet 25 mg PO BID 01/12/23 01/12/23 03/25/24 History cholecalciferol (vitamin D3) 25 25 mcg PO DAILY 01/12/23 01/12/23 Unknown History mcg (1,000 unit) tablet (Vitamin D3) omeprazole 20 mg capsule,delayed 20 mg PO DAILY 01/12/23 01/12/23 Unknown History release ramipril 10 mg capsule 10 mg PO BID 01/12/23 01/12/23 Unknown History Assessment and Plan Assessment Anesthesia Assessment: Chart Reviewed Final Anesthetic Review History of Problems with Anesthesia: No Documented by User: Kemal Mclean MD 03/25/24 12:29 [facility] Past Medical History Medical History (Updated 03/25/24 @ 11:00 by Lola Dumont RN) Sleep apnea Diverticulosis Barretts esophagus Depression HTN (hypertension) Family History Family history of problems with anesthesia: No Surgical History Surgical History (Updated 03/25/24 @ 10:59 by Lola Dumont RN) History of tonsillectomy History of back surgery H/O colonoscopy History of esophagogastroduodenoscopy (EGD) Social History Social History Patient Tobacco Use Status: Never used Tobacco Use of substances other than those prescribed or required for medical reasons: Yes Are you DNR?: No Advance Directives: No Advance Directives Information Provided: Yes Recently lost weight without trying: No Nutrition Risks: No Nutritional Risk Poor oral hygiene: No Meds Allergies Allergy/AdvReac Type Severity Reaction Status Date / Time No Known Allergies Allergy Verified 01/12/23 09:58 Home Medications ?Medication ?Instructions ?Recorded ?Confirmed ?Last Taken ?Type bupropion HCl 150 mg 24 hr tablet, 150 mg PO QAM 01/12/23 01/12/23 Unknown History extended release carvedilol 25 mg tablet 25 mg PO BID 01/12/23 01/12/23 03/25/24 History cholecalciferol (vitamin D3) 25 25 mcg PO DAILY 01/12/23 01/12/23 Unknown History mcg (1,000 unit) tablet (Vitamin D3) omeprazole 20 mg capsule,delayed 20 mg PO DAILY 01/12/23 01/12/23 Unknown History release ramipril 10 mg capsule 10 mg PO BID 01/12/23 01/12/23 Unknown History Exam Airway Mallampati Class: III TM Dist: >3cm Neck ROM: Full Assessment and Plan Assessment Anesthesia Assessment: Anesthesia Plan Discussed Final Anesthetic Review Family History of Problems with Anesthesia: No NPO: Yes ASA Class: II Final Preanesthetic Review: No Changes in Pt Med Stat, Meds/Allgs Chart Reviewed, Consent Obtained/Reviewed, Anes Risks/Benef Reviewed and DNR Form (If Appl.) Patient Risk: Low Procedure Risk: Low Anesthetic Plan Anesthetic Plan: TIVA Disposition: Standard PACU
[2024-03-25 11:00] VITALS: BMI 27.1
[2024-03-25 11:14] VITALS: BP 139/76; PULSE 54; RESP 16; TEMP 36.8; O2SAT 98
[2024-03-25] MEDS: Lactated Ringers 1,000 ML 100 ML IVCONT (11:23)
--- OUTSIDE RECORDS SUMMARY | 2024-03-25 11:42 | XMS_ITS | Patient Health Record ---
Author Organization [facility] Address [address] [place] [address] Care Team Providers Care Computer Forensics Technician Name Role Phone Sergo Nation MD Primary Care Provider Virgilio Luis Jr ALLERGIES No Known Allergies RESULTS Component Value Reference Range Notes CT abdomen pelvis w con Reviewed date:03/29/2023 10:00:13 AM Interpretation: Performing Lab: Notes/Report: [address] [address] [address] Scan Report Signed Patient: Anil Temple MR#: [id number] 438 : 1950 Acct:[id number] Age/Sex: 72 / M ADM Date: 03/26/23 Loc: HO.CT Attending Dr: Virgilio Brady MD Ordering Physician: Virgilio Brady MD Date of Service: 03/26/23 Procedure(s): CT abdomen pelvis w IV con Accession Number(s): [id number] cc: Virgilio Brady MD EXAMINATION: CT ABDOMEN AND PELVIS WITH CONTRAST CLINICAL INFORMATION: Colitis, left lower quadrant pain COMPARISON: 01/01/2023 TECHNIQUE: Multidetector volumetric images were obtained from the superior aspect of the liver through the pubic symphysis following administration 85 mL of Omnipaque 350 intravenous contrast. Sagittal and coronal reformatted images were obtained on the technologist's workstation. Oral contrast: No This CT examination was performed using dose optimization techniques as appropriate, variously including the following: *Automated exposure control *Adjustment of mA and/or kV according to patient size (this includes techniques or standardized protocols for targeted exams where dose is matched to indication/reason for exam; i.e. extremities or head) *Use of iterative reconstruction technique DLP: 389 mGy-cm FINDINGS: EQUAL EMPLOYMENT OPPORTUNITY OFFICER: Nonobstructive bowel pattern. LUNG BASES: The visualized lung bases are unremarkable. Nonenlarged heart. No pericardial effusion. LIVER, GALLBLADDER, AND BILIARY TREE: The liver is normal in size, shape, and attenuation. Multiple low-density hepatic lesions again seen, largest measuring 2.1 cm with Hounsfield units consistent with cyst. No biliary ductal dilatation is present. The gallbladder is unremarkable with no evidence of radiopaque gallstones, gallbladder wall thickening, or obvious pericholecystic inflammatory changes. PANCREAS: Unremarkable. SPLEEN: Unremarkable. ADRENAL GLANDS: Unremarkable. KIDNEYS AND URETERS: The kidneys are normal in size, shape, and attenuation. No hydronephrosis or calculi seen. Too small to characterize bilateral renal hypodensities, likely cysts. No perinephric stranding. Mild mid to distal left ureteral prominence with question mild distal ureteral thickening, coronal 44/84. BLADDER: Diffuse thickening decompressed urinary bladder. GASTROINTESTINAL TRACT: Decompressed stomach likely accounting for wall thickening. No obstruction. Thickened terminal ileum likely due to under distention. No surrounding inflammatory change. Diffuse thickening of diverticular laden colon. Improved pericolonic inflammatory changes since previous study. ABDOMINAL WALL: Bilateral small fat filled inguinal hernias, left greater than right. LYMPH NODES: No pathologic retroperitoneal lymphadenopathy. Nonspecific mesenteric lymph nodes. VASCULAR: Mild atherosclerotic calcifications and soft plaque aorta and iliac arteries. Unremarkable inferior vena cava and iliac veins. Patent portal system. Mild prominence left mid to distal ureter. Mild distal left ureteral thickening not excluded, coronal 44/84. PELVIC VISCERA: Mildly prominent heterogeneous prostate with calcification. OSSEOUS STRUCTURES: T11 hemangioma. No suspicious osseous lesions. CT/CT abdomen pelvis w IV con IMPRESSION: Improved pericolonic inflammatory changes with persistent long segment sigmoid colonic thickening in the setting of extensive diverticulosis. Suspect smoldering diverticulitis. Mild left mid to distal ureteral prominence. Distal left ureteral thickening not excluded. Decompressed mildly thick-walled urinary bladder. Prominent heterogeneous calcification containing prostate. Follow-up of findings as clinically indicated. Hepatic and renal cysts. Fleischner guidelines were followed. Dictated By: Jacinta Rosenberg MD Signed By: <Electronically signed by Jacinta Rosenberg MD in OV> 03/28/23 1402 DD/ 1459 TD/TT: Flat Knitter Helper: Complete Blood Count no Diff Reviewed date:01/03/2024 09:44:12 AM Interpretation: Performing Lab:[address] [address] Notes/Report: White Blood Count 5.0 4.8-10.8 X10*3/uL Red Blood Count 4.06 4.60-5.80 X10*6/uL Hemoglobin 12.3 14.0-18.0 g/dl Hematocrit 36.4 42.0-52.0 % Mean Corpuscular Volume 89.7 80.0-98.0 fL Mean Corpuscular Hemoglobin 30.3 27.0-33.0 pg Mean Corpuscular HGB Conc 33.8 31.0-36.0 g/dl Red Cell Distribution Width 12.2 11.0-16.0 % Platelet Count 247 160-400 X10*3/uL Mean Platelet Volume 10.8 9.4-12.4 fL NRBC Pct Auto 0.0 0.0-0.2 /100WBC NRBC Abs Auto 0.000 0.0-0.012 X10*3/uL Liver Panel Reviewed date:01/03/2024 09:44:38 AM Interpretation: Performing Lab:[address] [address] Notes/Report: Bilirubin Total 0.4 0.0-1.0 mg/dL Bilirubin Direct 0.1 0.0-0.5 mg/dL Aspartate Amino Transferase 26 5-37 U/L Alanine Aminotransferase 23 0-40 U/L Total Protein 6.3 6.5-8.0 g/dL Albumin Level 3.9 3.5-5.0 g/dL Alkaline Phosphatase 67 39-117 U/L Blood Urea Nitrogen Reviewed date:01/03/2024 09:44:33 AM Interpretation: Performing Lab:[address] [address] Notes/Report: Blood Urea Nitrogen 13 9-16 mg/dL Creatinine Reviewed date:01/03/2024 09:44:27 AM Interpretation: Performing Lab:[address] [address] Notes/Report: Creatinine 0.83 0.5-1.4 mg/dL Estimated Glomerular Filt Rate > 60 NOTE: For -Faroese individuals, multiply the result by 1.210. Chronic Kidney Disease: Estimated GFR < 60 mL/min/1.73m2 Severe Kidney Disease: Estimated GFR < 15 mL/min/1.73m2 Lipase Reviewed date:01/03/2024 09:44:22 AM Interpretation: Performing Lab:[facility], [address] [place] [address] Notes/Report: Lipase 13 8-78 U/L CT abdomen pelvis w con Reviewed date:01/11/2024 03:33:10 PM Interpretation: Performing Lab: Notes/Report: [address] [address] [address] Scan Report Signed Patient: Anil Temple MR#: [id number] 438 : 1950 Acct:[id number] Age/Sex: 73 / M ADM Date: 01/10/24 Loc: HO.CT Attending Dr: Virgilio Brady MD Ordering Physician: Virgilio Brady MD Date of Service: 01/10/24 Procedure(s): CT abdomen pelvis w IV con Accession Number(s): [id number] cc: Virgilio Brady MD; Sergo Nation III, MD EXAMINATION: CT ABDOMEN AND PELVIS WITH CONTRAST CLINICAL INFORMATION: Left lower quadrant pain. COMPARISON: CT dated March 26, 2023. TECHNIQUE: Multidetector volumetric images were obtained from the superior aspect of the liver through the pubic symphysis following administration 85 mL of Omnipaque 350 intravenous contrast. Sagittal and coronal reformatted images were obtained on the technologist's workstation. Oral contrast: No This CT examination was performed using dose optimization techniques as appropriate, variously including the following: *Automated exposure control *Adjustment of mA and/or kV according to patient size (this includes techniques or standardized protocols for targeted exams where dose is matched to indication/reason for exam; i.e. extremities or head) *Use of iterative reconstruction technique DLP: 407 mGy-cm FINDINGS: LUNG BASES: No acute airspace disease or gross pulmonary nodules in the included lungs. LIVER, GALLBLADDER, AND BILIARY TREE: Liver measures 16 cm. Multifocal well-defined fluid density lesions throughout its parenchyma, the largest measures 2.5 cm in the dome left hepatic lobe. There is a 1.5 cm portal venous phase enhancing lesion in the periphery of the posterior right hepatic lobe. Portal vein and hepatic veins are patent. Intrahepatic portion of the IVC is patent. Contracted gallbladder. No pericholecystic fluid collection or gallbladder wall thickening. Common bile duct measures 4 m. PANCREAS: No focal mass. No peripancreatic fluid collection. No main pancreatic ductal dilatation. There is a dystrophic calcifications in the mid splenic artery with a contour irregularity. SPLEEN: 10 cm. No focal mass. ADRENAL GLANDS: No nodular lesions. KIDNEYS AND URETERS: No gross renal mass or hydronephrosis. Multifocal and scattered different sizes fluid density lesions likely cyst.. BLADDER: Fluid-filled. GASTROINTESTINAL TRACT: Numerous diverticula in the sigmoid colon and to a lesser extent descending colon. There is a segmental pericolonic edema pattern and asymmetry wall thickening involving the mid sigmoid colon. There is no pneumoperitoneum or peripheral enhancing fluid collection in the pelvic peritoneal cavity. Prominent nonspecific lymph nodes likely reactive No intestinal obstruction pattern. Abundant stool within the large intestine. No pneumatosis intestinalis. No pneumoperitoneum. No ascites. Appendix is normal. ABDOMINAL WALL: Small fat-containing umbilical hernia. Small fat-containing left inguinal hernia. LYMPH NODES: Prominent likely reactive mesenteric and retroperitoneal lymph nodes. VASCULAR: Some the abdominal aorta wall and iliac arteries. No aneurysm or dissection, abdominal aorta. PELVIC VISCERA: The prostate gland and seminal vesicles are not enlarged. Punctate calcification in the prostate gland. OSSEOUS STRUCTURES: Multilevel thoracolumbar spondylosis. Trabeculated lesion at T11. Grade 1 retrolisthesis L1 to, L3-4 and L4-5 likely degenerative. No acute fracture. CT/CT abdomen pelvis w IV con IMPRESSION: Acute noncomplicated sigmoid colon diverticulitis resulting in prominent likely reactive mesenteric and retroperitoneal lymph nodes. Multifocal hepatitis cystic lesions and a focal flash hemangioma in the posterior right hepatic lobe Bilateral renal cysts. 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 Small fat-containing umbilical hernia. Intraosseous hemangioma, T11.. Fleischner guidelines were followed. Electronically signed by: Pj Dykes MD 01/11/2024 02:50 PM [facility] Dictated By: Pj Butler MD Signed By: <Electronically signed by Pj Martinez MD in OV> 01/11/24 1450 DD/ 1543 TD/TT: 01/10/24 1603 Flat Knitter Helper: Ova and Parasite (Not yet re viewed by provider) Interpretation: Performing Lab:[facility], [address] [place] [address] Notes/Report: Ova and Parasite SEE NOTE OVA AND PARASITES, CONC AND PERM SMEAR Micro Number: [id number] Test Status: Final Specimen Source: Stool Specimen Quality: Adequate CONCENTRATION 1: No ova or parasites seen TRICHROME 1: No ova or parasites seen Routine Ova and Parasite exam may not detect some parasites that occasionally cause diarrheal illness. Cryptosporidium Antigen and/or Cyclospora and Isospora Exam may be ordered to detect these parasites. One negative sample does not necessarily rule out the presence of a parasitic infection. For additional information, please refer to [email or web address].Brickfish/faq/ERH367 (This link is being provided for informational/ educational purposes only.) THIS TEST WAS PERFORMED AT: [place] [address] JOVANNY ROY MD Leukocytes Stool Qualitative Reviewed date:03/20/2024 10:05:11 AM Interpretation: Performing Lab:[address] [address] Notes/Report: Leukocytes Stool Qualitative NEGATIVE NEGATIVE CDiff Gene PCR Reviewed date:03/20/2024 10:04:54 AM Interpretation: Performing Lab:[facility], [address] [place] [address] Notes/Report: CDiff Gene PCR POSITIVE Negative Additional C. difficile toxin testing to be performed. CDiff Toxin Reviewed date:03/20/2024 10:05:01 AM Interpretation: Performing Lab:[address] [address] Notes/Report: CDiff Toxin Negative Negative CDIFF Interpretation SEE NOTE Likely C. difficile colonization. Continue contact precautions. GI PANEL Reviewed date:03/20/2024 02:18:35 PM Interpretation: Performing Lab:[facility], [address] [place] [address] Notes/Report: Campylobacter Not Detected Not Detect. Plesiomonas shigelloides Not Detected Not Detect. Salmonella Not Detected Not Detect. Vibrio Not Detected Not Detect. Vibrio Cholerae Not Detected Not Detect. Yersinia enterocolitica Not Detected Not Detect. E. coli EAEC Not Detected Not Detect. E. coli EPEC Not Detected Not Detect. E. coli ETEC Not Detected Not Detect. E. coli STEC Not Detected Not Detect. E. coli O157 Not applicable Not Detect. E. coli containing the O157 antigen are a subset of Shiga-like toxin-producing E. coli (STEC). Shigella sp./EIEC Not Detected Not Detect. Cryptosporidium Not Detected Not Detect. Cyclospora cayetanensis Not Detected Not Detect. Entamoeba histolytica Not Detected Not Detect. Giardia lamblia Not Detected Not Detect. Adenovirus F 40/41 Not Detected Not Detect. Astrovirus Not Detected Not Detect. Norovirus GI/GII Not Detected Not Detect. Rotavirus A Not Detected Not Detect. Sapovirus Not Detected Not Detect. All results must be correlated with clinical findings. Negative results do not exclude the possibility of gastrointestinal infection and should not be used as the sole basis for diagnosis, treatment, or other management decisions. Virus, bacteria, and parasite nucleic acid may persist in vivo independently of organism viability. Additionally, some organisms may be carried asymptomatically. Detection of organism targets does not imply that the corresponding organisms are infectious or are the causative agents for clinical symptoms. There is a risk of false negative values due to the presence of sequence variants in the gene targets of the assay, amplification inhibitors in specimens, or inadequate numbers of organisms for amplification. The identification of several diarrheagenic E. coli pathotypes has historically relied upon phenotypic characteristics. This panel targets genetic determinants characteristic of most pathogenic strains, but may not detect all strains having phenotypic characteristics of a pathotype. The performance of this test has not been established for monitoring treatment of infection with any of the panel organisms. This assay is performed by Multiplexed PCR, utilizing the [employer]cast Array. REASON FOR REFERRAL No Information MEDICATIONS Medication SIG (Take, Route, Frequency, Duration) Notes Start Date End Date Status predniSONE 10 MG 2 tablets Orally Onc e a day for 30 day(s) 03/07/2024 Active Fidaxomicin 200 MG 1 tablet Orally Twic e a day for 10 day(s) 03/20/2024 Active MiraLax (colon prep) 17 GM/SCOOP mixed with Gatorade or Crystal Light Orally begin at 5:00 p.m. the day before the procedure for 1 day 03/07/2024 Active Mesalamine ER 0.375 GM 4 capsules in the morning Orally Once a day for 30 days 01/17/2023 Active amLODIPine Besylate 5 MG Oral for 90 Active Zolpidem Tartrate 10 MG TAKE ONE TABLET BY MOUTH AT BEDTIME NEEDED FOR INSOMNIA. Oral for 28 Active Vitamin B12 Active Vitamin D3 25 MCG (1000 UT) 1 capsule Or ally Once a day Active levoFLOXacin 500 MG 1 tablet Orally Once a day for 7 days 01/11/2024 Active Doxycycline Hyclate 100 MG Oral for 10 Active metroNIDAZOLE 500 MG 1 tablet Orally Thr ee times a day for 7 days 01/11/2024 Active Carvedilol 25 MG TAKE 1 TABLET BY ANASTASIA TH TWICE DAILY WITH MEALS Oral for 90 Active Valsartan 320 MG Oral for 30 A ctive predniSONE 10 MG 4 tablets daily for 1 week then decrease by 1 tablet weekly Orally Once a day for 30 day(s) 01/11/2024 Active buPROPion HCl ER (XL) 150 MG Oral for 90 Active Omeprazole 20 MG Oral for 90 A ctive IMMUNIZATIONS Vaccine Route Administration Date Status Comme nts Influenza Unknown 12/19/2022 Administered SOCIAL HISTORY Tobacco Use: Social History Observation Description Date Details (start date - stop date) Never Smoker NA - NA Sex Assigned At : Social History Observation Description Sex Assigned At Unknown Tobacco Use/Smoking Question Answer Notes Patient is a nonsmoker Alcohol Screen Question Answer Notes Did you have a drink contain ing alcohol in the past year? Yes How often did you have a dri nk containing alcohol in the past year? Never (0 point) How many drinks did you have on a typical day when you were drinking in the past year? 1 or 2 drinks (0 point) How often did you have 6 or more drinks on one occasion in the past year? 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) Active confirmed 377415253 Problem Rectal bleeding (K62.5) Active confirmed 36849493 Problem Reddy esophagus (K22.70) Active confirmed Reddy esophagus (485255333) Problem Colitis (K52.9) Active confirmed 530141 04 Problem LLQ pain (R10.32) Active confirmed 3017 78437 Problem Other ulcerative colitis with rectal bleeding (K51.811) Active confirmed 22814669 Problem Diverticulitis (K57.92) Active confirmed 877665272 VITAL SIGNS Temperature 98.6 degrees Fahrenheit 07/30/2023 Blood pressure diastolic 00 mm Hg 01/11/2024 Height 5 ft 8 in in 01/11/2024 Blood pressure systolic 00 mm Hg 01/11/2024 Weight 190 lbs 01/11/2024 BMI 28.89 kg/m2 01/11/2024 Encounters Encounter Location Date Provider Diagnosis [facility] Outpatient [address] [place] [id number] 03/25/2024 Virgilio Brady Jr [facility] [address] [place] [phone] 05/02/2023 Virgilio Brady Jr [facility] [address] [place] [phone] 07/30/2023 Virgilio Brady Jr Reddy's esophagus without dysplasia K22.70 ; Other ulcerative colitis with rectal bleeding K51.811 and Diverticulitis K57.92 [facility] [address] [place] [phone] 01/30/2024 Virgilio Brady Jr [facility] [address] [place] [phone] 12/06/2023 Virgilio Brady Jr [facility] [address] [place] [phone] 01/11/2024 Virgilio Brady Jr Colitis K52.9 [facility] [address] [place] [phone] 03/29/2023 Virgilio Brady Jr [facility] [address] [place] [phone] 04/30/2023 Virgilio Brady Jr [facility] [address] [place] [address] 07/25/2023 Virgilio Brady Jr [facility] [address] [place] [address] 08/29/2023 Virgilio Brady Jr [facility] [address] [place] [phone] 11/16/2023 Virgilio Brady Jr LLQ pain R10.32 [facility] [address] [place] [address] 01/03/2024 Virgilio Brady Jr [facility] [address] [place] [address] 01/11/2024 Virgilio Brady Jr [facility] [address] [place] [phone] 03/07/2024 Virgilio Brady Jr Colitis K52.9 [facility] [address] [place] [phone] 03/20/2024 Virgilio Brady Jr ASSESSMENTS Encounter Date Diagnosis Assessment Notes Treatment Notes Treatment Clinical Notes 07/30/2023 Reddy's esophagus without dysplasia (ICD-10 - K22.70) Diverticulitis - what to ask your doctor material was printed 07/30/2023 Other ulcerative colitis with rectal bleeding (ICD-10 - K51.811) 01/11/2024 Colitis (ICD-10 - K52.9) 11/16/2023 LLQ pain (ICD-10 - R10.32) 03/07/2024 Colitis (ICD-10 - K52.9) 07/30/2023 Diverticulitis (ICD-10 - K57.92) PLAN OF TREATMENT Pending Test Test Name Order Date BUN 12/21/2022 BUN 11/16/2023 BUN 03/19/2023 CREATININE 03/19/2023 CREATININE 12/21/2022 LIVER PROFILE 03/19/2023 LIVER PROFILE 11/16/2023 LIPASE 11/16/2023 LIPASE 03/19/2023 CRP 03/19/2023 CBC w DIFF 12/21/2022 CBC w/o DIFF 11/16/2023 CBC w/o DIFF 03/19/2023 SED RATE (ESR) 03/19/2023 STOOL WBC 03/07/2024 OVA & PARASITES (O&P) 03/07/2024 CT ABD & PELVIS WITH CONTRAST 12/21/2022 CT ABD & PELVIS WITH CONTRAST 11/16/2023 CT ABD & PELVIS WITH CONTRAST 03/19/2023 TSH REFLEX FREE T4 12/21/2022 STOOL WBC 12/21/2022 C DIFFICILE RFLX PCR 03/07/2024 CALPROTECTIN, STOOL 12/21/2022 CALPROTECTIN, STOOL 03/19/2023 Ova and Parasite 03/19/2024 GI PANEL 03/07/2024 Future Test Test Name Order Date UPPER GI ENDOSCOPY 01/04/2023 COLONOSCOPY 01/04/2023 CREATININE 11/19/2023 COLONOSCOPY 03/07/2024 Next Appt Details Provider Name:Virgilio worrell Jr, 03/25/2024 12:30:00 PM, [address] [place] [address] , [place], [place], [phone], Insurance Providers Payer Name Payer Address Payer Phone Subscriber Number Group Number Insured Name Patient Relationship to Insured Coverage Start Date Coverage End Date MEDICARE OF [place] [address] [place] [address] [id number] ANIL TEMPLE Self - patient is the insured MED[employer] ATTN CLAIMS [address] [place] [address] [id number] ANIL TEMPLE Self - patient is the insured MEDICAL (GENERAL) HISTORY Medical History History ICD Code Hypertension Depression Reddy's esophagus, EGD fundic gland polyps, and no H. pylori, Reddy's with no dysplasia, three-year followup Colonoscopy 01/18 colitis fr om rectum to 40 cm, biopsies show chronic colitis, mesalamine started 01/18 Diverticulitis, uncomplicated 07/19 Surgical History Surgery Date(Month/Year) back surgery
--- OUTSIDE RECORDS SUMMARY | 2024-03-25 11:42 | XMS_ITS ---
Author Organization [facility] Address [address] [facility] [address] [place] [phone] Care Team Providers Care Ultrasound Technician Name Role Phone Sergo Nation MD Primary Care Provider Virgilio Luis Jr REASON FOR VISIT still not feeling well/ any special instructions before sending instructions for colonoscopy? MEDICATIONS Medication SIG (Take, Route, Frequency, Duration) Notes Start Date End Date Status predniSONE 10 MG 2 tablets Orally Onc e a day for 30 day(s) 03/07/2024 Active MiraLax (colon prep) 17 GM/SCOOP mixed with Gatorade or Crystal Light Orally begin at 5:00 p.m. the day before the procedure for 1 day 03/07/2024 Active Encounters Encounter Location Date Provider Diagnosis [facility] [address] [facility] [address] [place] [phone] 03/07/2024 Virgilio Brady Jr Colitis K52.9 ASSESSMENTS Encounter Date Diagnosis Assessment Notes Treatment Notes Treatment Clinical Notes 03/07/2024 Colitis (ICD-10 - K52.9) PLAN OF TREATMENT Medication Medication Name Sig Start Date Stop Date Notes predniSONE 10 MG 2 tablets Orally Onc e a day for 30 day(s) 03/07/2024 MiraLax (colon prep) 17 GM/SCOOP mixed with Gatorade or Crystal Light Orally begin at 5:00 p.m. the day before the procedure for 1 day 03/07/2024 Pending Test Test Name Order Date STOOL WBC 03/07/2024 OVA & PARASITES (O&P) 03/07/2024 C DIFFICILE RFLX PCR 03/07/2024 GI PANEL 03/07/2024 Future Test Test Name Order Date COLONOSCOPY 03/07/2024 Next Appt Details Provider Name:Virgilio worrell Jr, 03/25/2024 12:30:00 PM, [address] [place] [address] , [place], [phone],
--- OUTSIDE RECORDS SUMMARY | 2024-03-25 11:42 | XMS_ITS ---
Author Organization [facility] Address [address] [place] [phone] Care Team Providers Care Siene Maker Name Role Phone Sergo Nation MD Primary Care Provider Mary Kay Brady Jr, Virgilio Sandra REASON FOR VISIT labs/ waiting on pt call back MEDICATIONS Medication SIG (Take, Route, Fr equency, Duration) Notes Start Date End Date Status Fidaxomicin 200 MG 1 tablet Orally Twic e a day for 10 day(s) 03/20/2024 Active Encounters Encounter Location Date Provider Diagnosis [facility] [address] [facility] [address] [place] [phone] 03/20/2024 Virgilio Brady Jr PLAN OF TREATMENT Medication Medication Name Sig Start Date Stop Date Notes Fidaxomicin 200 MG 1 tablet Orally Twic e a day for 10 day(s) 03/20/2024 Next Appt Details Provider Name:Virgilio worrell Jr, 03/25/2024 12:30:00 PM, [address] [place] [address] , [place], [place], [phone],
--- OUTSIDE RECORDS SUMMARY | 2024-03-25 11:42 | XMS_ITS ---
Author Organization [facility] Address [address] [place] [address] Care Team Providers Care Pool Player Name Role Phone Sergo Nation MD Primary Care Provider Virgilio Luis Jr REASON FOR VISIT colitis Encounters Encounter Location Date Provider Diagnosis [facility] [address] [place] [phone] 03/25/2024 Virgilio Brady Jr PLAN OF TREATMENT Next Appt Details Provider Name:Virgilio worrell Jr, 03/25/2024 12:30:00 PM, [address] [place] [address], [phone],
--- OUTSIDE RECORDS SUMMARY | 2024-03-25 11:42 | XMS_ITS | Clinical Summary ---
Author Organization [address] [facility] Address [address] [place] [address] Phone Care Team Providers Care Globe Cleaner Name Role Phone Sergo Nation MD Primary Care Provider [phone] Allergies No known active allergies Medications Medication [...] 02/22/2024 Active zolpidem (AMBIEN) 10 mg tablet TAKE ONE TABLET BY MOUTH DAILY AT BEDTIME NEEDED FOR INSOMNIA 28 tablet 01/25/2024 4 Discontinued (Reorder) zolpidem (AMBIEN) 10 mg tablet Take 1 tablet (10 mg total) by mouth at bedtime as needed for sleep for up to 28 days. 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 GERD (gastroesophageal reflux disease) 4 HTN (hypertension) 12/17/2023 Overview (12/17/2023): Last Assessment [...] Type Department Care Team Description 03/12/2024 Telephone [facility] - [facility] [address] [facility] [address] [place] [address] Hernando Méndez MD Procedure (Cardiac clearance for colonoscopy ) 01/07/2024 Nurse Triage Adult Medicine [address] [phone] Gris Mueller PA from Last 3 Months Immunizations Name Administration Dates Next Due Influenza Quadravalent, MDCK , 0.5ml, with preservative (Flucelvax) 6mo and older 11/09/2016 Influenza trivalent, 0.5mL ( Fluad) 65yo and older 11/11/2021,11/28/2020,11/26/2019,12/25 Influenza trivalent, 0.5mL, preservative free (Fluarix; FluLaval; Fluzone) ages 6mo and older (Afluria) 3 years and older 12/14/2015,11/12/2014,11/27/2012 Influenza, Unspecified 12/19/2018,11/06/2013 [employer] SARS-CoV-2 COVID-19, mRNA, LNP-S, preservative free 11/21/2020,04/26/2020,04/20/2020,04/19 Pneumococcal conjugate 13 va lent (Prevnar 13, PCV13) 2mo and older 01/01/2019 Pneumococcal polysaccharide 23 valent (Pneumovax 23) 2yo and older 04/18/2021 Tdap Tetanus diptheria acell ular pertussis (Boostrix; Adacel) 7yo and older 04/20/2015 Zoster recombinant (Shingrix ) 19yo and older 09/21/2021,06/19/2021 Surgical History Surgery Date Site/Laterality Comments COLONOSCOPY PROCEDURE: [place] COLONOSCOPY STOMA DX INCLUDING COLLJ SPEC SPX; COMMENT: age 60 TONSILLECTOMY PROCEDURE: HISTORICAL TONSILLECTOMY BACK SURGERY 08/2013 PROCEDURE: HISTORICAL BACK SURGERY; COMMENT: L4-5 decompression surgery, Dr Valentine. Medical History Medical History Date Comments EDOUARD (obstructive sleep apnea) DX :EDOUARD (obstructive sleep apnea); COMMENT: dental appliance helping HTN (hypertension) DX:HTN (hyper tension) Low back pain DX:Low back pain ; COMMENT: [employer] sport injection therapy GERD (gastroesophageal reflux disease) [...] 9:45 AM EST Office Visit Adult Medicine [facility] [address] [place] [address] Sergo Nation MD [address] [place] [address] Health Maintenance Due Date Last Done Comments [...] Laterality Modality Computed Tomogra phy Provider Onbase IMG CT PROCEDURES * Annual BMP Blood Test (10/26/2023) Annual BMP Blood Test abstracted Historical Provider MD MARTIN BORDEN E * Falls Risk Assessment (10/26/2023) Pathologist [facility] Falls Risk Assessment abstracted Historical Provider MD MARTIN BORDEN E * Depression Screening (10/26/2023) [facility] abstracted Historical Provider MD MARTIN BORDEN E * Colonoscopy (01/16/2023) [facility] Colonoscopy no interpretation , abstracted Anatomical Region Laterality Modality Other Historical Provider MD MARTIN BORDEN E * (ABNORMAL) Lipid panel (10/23/2022) [facility] LDL/HDL Ratio 5(A) 0 - 4 Triglycerides 146 0 - 150 mg/dL Cholesterol 170 0 - 200 mg/dL HDL 34(A) 40 mg/dL LDL Cholesterol 107(A) 0 - 100 mg/dL Blood Venous blood specimen / Unknown Historical Provider LAB BLOOD ORDERAB LES * Hepatitis C Screening (12/02/2012) [facility] Hep[facility] C Screening abstracted Historical Provider MD MARTIN Locke from Last 3 Months or Most Recently Relevant to Health Maintenance Care Teams Globe Cleaner Relationship Specialty Start Date End Date Sergo Nation MD PCP - General Internal Medicine 09/17/20
--- OUTSIDE RECORDS SUMMARY | 2024-03-25 11:42 | XMS_ITS | Encounter Summary ---
Author Organization [facility] [place] [address] Care Team Providers Care Technical Agronomist Name Role Phone Sergo Nation MD Primary Care Provider [phone] Reason for Visit * Reason Onset Date Comments Procedure 03/12/2024 Cardiac clearanc e for colonoscopy Encounter Details Date Type Department Care Team ([facility] Contact Info) Description 03/12/2024 Telephone [facility] - [facility] [address] [facility] [address] [place] [id number] Hernando Méndez MD [address] [facility] [address] [place] [address] Procedure (Cardiac clearance for colonoscopy ) Social [...] 03/12/2024 3:58 PM EST Sade aware of [employer] message and confirmed fax #. Sending message [...] confirm she was aware of that but [facility] the site where they are doing to colonoscopy is asking for something in writing from the track and field coach stating pt's heart is healthy enough for the colonoscopy. I did state I would send this on. Sade did express understanding. Last OV was with Dori in 04/2023 Please advise. Thank you. * Nya Lowery MA - 03/12/2024 10:44 AM EST Sade from [facility] called. The patient is having a colonoscopy on 03/25/[address] Brady is looking for cardiac clearance. Please advise. documented in this encounter Plan of Treatment Upcoming Encounters Date Type Department Care Team (Late st Contact Info) Description 05/02/2024 9:45 AM EST Office Visit Adult Medicine [address] [phone] Sergo Nation MD [address] [place] [phone] documented as of this encounter Visit Diagnoses Not on filedocumented in this encounter Care Teams Technical Agronomist Relationship Specialty Start Date End Date Sergo Nation MD PCP - General Internal Medicine 09/17/20 documented as of this encounter
--- NOTE | 2024-03-25 11:57 | P.HPSUR_ITS ---
Pre-Procedural Eval Section A - 24 Hr Update-Section A only Date of Service: 03/25/24 Section B - Complete if H&P > 30 days Chief Complaint: Noninfective gastroenteritis and colitis, unspecif Details of Present Illness: see H&P no changes Relevant Family History (Specify if Yes): No Relevant Social History: None Present Medications: see Short Stay Collaborative assessment Medical History: No relevant PMH History of Previous Operations: No relevant previous surgery Allergies: Allergies Allergy/AdvReac Type Severity Reaction Status Date / Time No Known Allergies Allergy Verified 01/12/23 09:58 Review of Systems Sugical H&P ROS: Negative: Constitution, Cardiovascular, Respiratory, Neurological, Psychiatric, Hem-Onc, Allergic/Immunologic, Gastrointestinal, Genitourinary, Musculoskeletal, Integumentary, Endocrine and Eyes/Ears/N ose/Throat Exam Surgical H&P Exam: Normal: HEENT, Normal: Heart, Normal: Lungs, Normal: Extremities, Normal: Abdomen, Normal: Skin and Normal: Neurological Plan I have reviewed the history and physical and performed a pertinent physical examination on my patient. No changes have occurred unless specified. Time Spent With Patient Time: Total time managing care of this patient today ____ minutes.
[2024-03-25 13:06] VITALS: BP 90/45; PULSE 53; RESP 16; TEMP 36.5; O2SAT 94
--- NOTE | 2024-03-25 13:15 | P.BOP_ITS ---
Brief Operative Note Date of Service: 03/25/24 Pre-op diagnosis: colitis Post-op diagnosis: same Procedure: [id number] Surgeon: Virgilio Brady MD Anesthesia: MAC Was an Print Shop Manager used for this Procedure?: No Estimated blood loss (mL): 2 Pathology: other Condition: stable Disposition: PACU
--- NOTE | 2024-03-25 13:15 | PM.OP ---
Brief Operative Note Date of Service: 03/25/24 Pre-op diagnosis: colitis Post-op diagnosis: same Procedure: [id number] Surgeon: Virgilio Brady MD Anesthesia: MAC Was an Powderer used for this Procedure?: No Estimated blood loss (mL): 2 Pathology: other Condition: stable Disposition: PACU
[2024-03-25 13:21] VITALS: BP 100/57; PULSE 56; RESP 20; O2SAT 94
[2024-03-25 13:32] VITALS: BP 112/62; PULSE 52; RESP 20; TEMP 36.5; O2SAT 94
--- NOTE | 2024-03-25 14:08 | OP_ITS ---
DATE OF SERVICE: 03/25/2024 SURGEON: Virgilio Brady MD INDICATIONS: Colitis. PREOPERATIVE DIAGNOSIS: POSTOPERATIVE DIAGNOSIS: PROCEDURE PERFORMED: Colonoscopy to the terminal ileum with biopsy and snare polypectomy. ESTIMATED BLOOD LOSS: COMPLICATIONS: ANESTHESIA: Monitored anesthesia care. ASSISTANTS: SPECIMENS: DESCRIPTION OF PROCEDURE: A history and physical was performed. The risks and benefits of the procedure were explained to the patient and informed consent was obtained. The patient was placed in the left lateral decubitus position. A digital rectal exam was performed and was found to be normal. The Olympus pediatric video colonoscope was introduced into the rectum and advanced to the cecum. The cecum was identified by transillumination, palpation, and identification of ileocecal valve. Examination was performed and the scope was removed. He tolerated the procedure well and was returned to recovery area in stable condition. FINDINGS: The terminal ileum was examined and appeared normal. This was biopsied. Biopsies were obtained from the right colon, left colon, sigmoid, and rectum. There was a polyp located at 55 cm from the anal verge measuring approximately 6 mm. This was removed with a cold snare and recovered via suction. Colitis was present beginning in the sigmoid and a patchy distribution to the rectum at about 30 cm. The colitis showed changes with erythema, edema, and loss of vascular pattern. Biopsies were obtained from the abnormal mucosa. There was mild sigmoid diverticulosis. Retroflexed examination showed some internal hemorrhoids. IMPRESSION: 1. Colitis. 2. Colon polyp. RECOMMENDATION: Follow up the biopsy results. MD LINDA Connolly/SYLVESTER / [id number]
== END 2024-03-25 13:37 | disposition home or self-care (01) ==
PROVIDERS: PCP Internal Medicine; Visit Provider Internal Medicine Gastroenterology
PROC: 0DJD8ZZ Inspection of Lower Intestinal Tract, Via Natural or Artificial Opening Endoscopic (ICD-10-PCS; CPT 45378; principal; 2024-03-25 12:30)
DX: K52.9 Noninfective gastroenteritis and colitis, unspecified (principal); D12.5 Benign neoplasm of sigmoid colon; K57.30 Diverticulosis of large intestine without perforation or abscess without bleeding; Z87.19 Personal history of other diseases of the digestive system; K64.8 Other hemorrhoids; K62.89 Other specified diseases of anus and rectum; I10 Essential (primary) hypertension; K22.70 Barrett's esophagus without dysplasia; K31.7 Polyp of stomach and duodenum; F32.A Depression, unspecified; G47.30 Sleep apnea, unspecified; Z79.1 Long term (current) use of non-steroidal anti-inflammatories (NSAID); Z79.899 Other long term (current) drug therapy
CPT/HCPCS: 45385; 45380; 88305; J2003; J2704

== ENCOUNTER 2024-04-05 07:58 | Outpatient (REF) | payer MEDICARE, SELFPAY ==
--- OUTSIDE RECORDS SUMMARY | 2024-04-05 08:01 | XMS_ITS | Clinical Summary ---
Author Organization [address] [facility] Address [address] [place] [address] Phone Care Team Providers Care Gas Turbine Mechanic Name Role Phone Sergo Nation MD Primary Care Provider [phone] Allergies No known active allergies Medications Medication [...] BY MOUTH DAILY AT BEDTIME NEEDED FOR SLEEP FOR UP TO 28 DAYS; MAX DAILY AMOUNT IS 10MG. 28 tablet 04/03/2024 Active zolpidem (AMBIEN) 10 mg tablet Take 1 tablet (10 mg total) by mouth at bedtime as needed for sleep for up to 28 days. at bedtime Max Daily Amount: 10 mg 28 tablet 02/25/2024 5 Discontinued Active Problems Problem Noted Date Diagnosed Date [...] Type Department Care Team Description 03/12/2024 Telephone [facility] - [facility] [address] [facility] [address] [place] [address] Hernando Méndez MD Procedure (Cardiac clearance for colonoscopy ) 01/07/2024 Nurse Triage Adult Medicine [address] [phone] Gris Mueller PA from Last 3 Months Immunizations Name Administration Dates Next Due Influenza Quadravalent, MDCK , 0.5ml, with preservative (Flucelvax) 6mo and older 11/09/2016 Influenza trivalent, 0.5mL ( Fluad) 65yo and older 11/11/2021,11/28/2020,11/26/2019,12/25 Influenza trivalent, 0.5mL, preservative free (Fluarix; FluLaval; Fluzone) ages 6mo and older (Afluria) 3 years and older 12/14/2015,11/12/2014,11/27/2012 Influenza, Unspecified 12/19/2018,11/06/2013 [employer] SARS-CoV-2 COVID-19, mRNA, LNP-S, preservative free 11/21/2020,04/26/2020,04/20/2020,04/19 Pneumococcal conjugate 13 va lent (Prevnar 13, PCV13) 2mo and older 01/01/2019 Pneumococcal polysaccharide 23 valent (Pneumovax 23) 2yo and older 04/18/2021 Tdap Tetanus diptheria acell ular pertussis (Boostrix; Adacel) 7yo and older 04/20/2015 Zoster recombinant (Shingrix ) 19yo and older 09/21/2021,06/19/2021 Surgical History Surgery Date Site/Laterality Comments COLONOSCOPY PROCEDURE: [place] COLONOSCOPY STOMA DX INCLUDING COLLJ SPEC SPX; COMMENT: age 60 TONSILLECTOMY PROCEDURE: HISTORICAL TONSILLECTOMY BACK SURGERY 08/2013 PROCEDURE: HISTORICAL BACK SURGERY; COMMENT: L4-5 decompression surgery, Dr Valentine. Medical History Medical History Date Comments EDOUARD (obstructive sleep apnea) DX :EDOUARD (obstructive sleep apnea); COMMENT: dental appliance helping HTN (hypertension) DX:HTN (hyper tension) Low back pain DX:Low back pain ; COMMENT: [employer] sport injection therapy GERD (gastroesophageal reflux disease) [...] 9:45 AM EST Office Visit Adult Medicine [facility] [address] [place] [address] Sergo Nation MD [address] [place] [id number] Health Maintenance Due Date Last Done Comments [...] E * Falls Risk Assessment (10/26/2023) Pathologist [facility] Falls Risk Assessment abstracted Historical Provider MD MARTIN BORDEN E * Depression Screening (10/26/2023) Depression Screening abstracted Historical Provider MD MARTIN BORDEN E * Colonoscopy (01/16/2023) Pathologist [facility] Colonoscopy no interpretation , abstracted Anatomical Region Laterality Modality Other Historical Provider MD MARTIN BORDEN E * (ABNORMAL) Lipid panel (10/23/2022) [facility] LDL/HDL Ratio 5(A) 0 - 4 Triglycerides 146 0 - 150 mg/dL Cholesterol 170 0 - 200 mg/dL HDL 34(A) 40 mg/dL LDL Cholesterol 107(A) 0 - 100 mg/dL Blood Venous blood specimen / Unknown Historical Provider LAB BLOOD ORDERAB LES * Hepatitis C Screening (12/02/2012) [facility] Hepatitis C Screening abstracted Historical Provider MD MARTIN BORDEN E from Last 3 Months or Most Recently Relevant to Health Maintenance Care Teams Gas Turbine Mechanic Relationship Specialty Start Date End Date Sergo Nation MD PCP - General Internal Medicine 09/17/20
--- OUTSIDE RECORDS SUMMARY | 2024-04-05 08:01 | XMS_ITS | Patient Health Record ---
Author Organization [facility] Address [address] [place] [address] Care Team Providers Care Animal Cop Name Role Phone Sergo Nation MD Primary Care Provider Virgilio Luis Jr ALLERGIES No Known Allergies RESULTS Component Value Reference Range Notes Complete Blood Count no Diff Reviewed date:01/03/2024 09:44:12 AM Interpretation: Performing Lab:[facility], [address] [place] [phone] Notes/Report: White Blood Count 5.0 4.8-10.8 X10*3/uL [...] Panel Reviewed date:01/03/2024 09:44:38 AM Interpretation: Performing Lab:[facility], [address] [place] [phone] Notes/Report: Bilirubin Total 0.4 0.0-1.0 mg/dL Bilirubin Direct 0.1 0.0-0.5 mg/dL Aspartate Amino Transferase 26 5-37 U/L Alanine Aminotransferase 23 0-40 U/L Total Protein 6.3 6.5-8.0 g/dL Albumin Level 3.9 3.5-5.0 g/dL Alkaline Phosphatase 67 39-117 U/L Blood Urea Nitrogen Reviewed date:01/03/2024 09:44:33 AM Interpretation: Performing Lab:[address] [address] Notes/Report: Blood Urea Nitrogen 13 9-16 mg/dL Creatinine Reviewed date:01/03/2024 09:44:27 AM Interpretation: Performing Lab:[address] [address] Notes/Report: Creatinine 0.83 0.5-1.4 mg/dL Estimated Glomerular Filt Rate > 60 NOTE: For [place] Islander individuals, multiply the result by 1.210. Chronic Kidney Disease: Estimated GFR < 60 mL/min/1.73m2 Severe Kidney Disease: Estimated GFR < 15 mL/min/1.73m2 Lipase Reviewed date:01/03/2024 09:44:22 AM Interpretation: Performing Lab:[address] [address] Notes/Report: Lipase 13 8-78 U/L CT abdomen pelvis w con Reviewed date:01/11/2024 03:33:10 PM Interpretation: Performing Lab: Notes/Report: [address] [address] [address] Scan Report Signed Patient: Anil Temple MR#: [id number] : 1950 Acct:[id number] Age/Sex: 73 / M ADM Date: 01/10/24 Loc: HO.CT Attending Dr: Virgilio Brady MD Ordering Physician: Virgilio Brady MD Date of Service: 01/10/24 Procedure(s): CT abdomen pelvis w IV con Accession Number(s): [id number] cc: Virgilio Brady MD; Sergo Nation III, [...] by: Pj Dykes MD 01/11/2024 02:50 PM [facility] Dictated By: Pj Butler MD Signed By: <Electronically signed by Pj Martinez MD in OV> 01/11/24 1450 DD/ 1543 TD/TT: 01/10/24 1603 [facility] [facility] Quality Control Technician: Leukocytes Stool Qualitative Reviewed date:03/20/2024 10:05:11 AM Interpretation: Performing Lab:[facility], [address] [place] [phone] Notes/Report: Leukocytes Stool Qualitative NEGATIVE NEGATIVE Ova and Parasite Reviewed date:03/26/2024 08:16:04 AM Interpretation: Performing Lab:[facility], [address] [place] [phone] Notes/Report: Ova and Parasite SEE NOTE OVA AND PARASITES, CONC AND PERM SMEAR Micro Number: [id number] Test Status: Final Specimen Source: Stool Specimen [...] infection. For additional information, please refer to [email or web address].OpenSpan/faq/NXL005 (This link is being provided for informational/ educational purposes only.) THIS TEST WAS PERFORMED AT: [place] [address] JOVANNY ROY MD CDiff Gene PCR Reviewed date:03/20/2024 10:04:54 AM Interpretation: Performing Lab:[facility], [address] [place] [phone] Notes/Report: CDiff Gene PCR POSITIVE Negative Additional C. difficile toxin testing to be performed. CDiff Toxin Reviewed date:03/20/2024 10:05:01 AM Interpretation: Performing Lab:[facility], [address] [place] [phone] Notes/Report: CDiff Toxin Negative Negative CDIFF Interpretation SEE NOTE Likely C. difficile colonization. Continue contact precautions. GI PANEL Reviewed date:03/20/2024 02:18:35 PM Interpretation: Performing Lab:[facility], [address] [place] [phone] Notes/Report: Campylobacter Not Detected Not Detect. Plesiomonas [...] is performed by Multiplexed PCR, utilizing the TrademarkFly Array. Pathology Reviewed date:03/28/2024 12:02:23 AM Interpretation: Performing Lab:[facility], [address] [place] [phone] Notes/Report: REASON FOR REFERRAL No Information MEDICATIONS Medication SIG (Take, Route, Frequency, Duration) Notes Start Date End Date Status predniSONE 10 MG 2 tablets Orally Onc e a day for 30 day(s) 03/07/2024 Active Fidaxomicin 200 MG 1 tablet Orally Twic e a day for 10 day(s) 03/20/2024 Active Humira (2 Pen) 40 MG/0.4ML 0.4 mL Subcut aneous every 2 weeks 03/27/2024 Active MiraLax (colon prep) 17 GM/SCOOP mixed with Gatorade or Crystal Light Orally begin at 5:00 p.m. the day before the procedure for 1 day 03/07/2024 Active Humira-CD/UC/HS Starter 80 MG/0.8ML as directed Subcutaneous 03/27/2024 Act vickie Mesalamine ER 0.375 GM 4 capsules in [...] 25 MG TAKE 1 TABLET BY ANASTASIA TWICE DAILY WITH MEALS Oral for 90 [...] or abscess with bleeding (K57.33) Active confirmed 9690575 Problem Diarrhea, unspecified type (R19.7) Active confirmed 05444916 Problem Abnormal CT scan, gastrointestinal tract (R93.3) Active confirmed 779838284 Problem Reddy's esophagus without dysplasia (K22.70) Active confirmed 921126481 Problem Rectal bleeding (K62.5) Active confirmed 19618631 Problem Reddy esophagus (K22.70) Active confirmed Reddy esophagus (696048169) Problem Colitis (K52.9) Active confirmed 907621 04 Problem LLQ pain (R10.32) Active confirmed 3017 73636 Problem Other ulcerative colitis with rectal bleeding (K51.811) Active confirmed 76343342 Problem Diverticulitis (K57.92) Active confirmed 924171893 VITAL SIGNS Temperature 98.6 degrees Fahrenheit 07/30/2023 Blood pressure diastolic 00 mm Hg 01/11/2024 Height 5 ft 8 in in 01/11/2024 Blood pressure systolic 00 mm Hg 01/11/2024 Weight 190 lbs 01/11/2024 BMI 28.89 kg/m2 01/11/2024 Encounters Encounter Location Date Provider Diagnosis [facility] Outpatient [address] [place] [phone] 03/25/2024 Virgilio Brady Jr Colon polyps K63.5 and Colitis K52.9 [facility] [address] [place] [phone] 05/02/2023 Virgilio Brady Jr [facility] [address] [place] [phone] 07/30/2023 Virgilio Brady Jr Reddy's esophagus without dysplasia K22.70 ; Other ulcerative colitis with rectal bleeding K51.811 and Diverticulitis K57.92 [facility] [address] [place] [phone] 01/30/2024 Virgilio Brady Jr [facility] [address] [place] [phone] 12/06/2023 Virgilio Brady Jr [facility] [address] [place] [phone] 01/11/2024 Virgilio Brady Jr Colitis K52.9 [facility] [address] [place] [phone] 04/30/2023 Virgilio Brady Jr [facility] [address] [place] [phone] 07/25/2023 Virgilio Brady Jr [facility] [address] [place] [phone] 08/29/2023 Virgilio Brady Jr [facility] [address] [place] [phone] 11/16/2023 Virgilio Brady Jr LLQ pain R10.32 [facility] [address] [place] [phone] 01/03/2024 Virgilio Brady Jr [facility] [address] [place] [phone] 01/11/2024 Virgilio Brady Jr [facility] [address] [place] [phone] 03/07/2024 Virgilio Brady Jr Colitis K52.9 [facility] [address] [place] [phone] 03/20/2024 Virgilio Brady Jr [facility] [address] MELISSA Hernandez [phone] 03/27/2024 Virgilio Brady Jr Other ulcerative colitis with rectal bleeding K51.811 ASSESSMENTS Encounter Date Diagnosis Assessment Notes Treatment Notes Treatment Clinical Notes 03/25/2024 Colon polyps (ICD-10 - K63.5) 03/25/2024 Colitis (ICD-10 - K52.9) 07/30/2023 Reddy's esophagus without dysplasia (ICD-10 - K22.70) Diverticulitis - what to ask your doctor material was printed 07/30/2023 Other ulcerative colitis with rectal bleeding (ICD-10 - K51.811) 01/11/2024 Colitis (ICD-10 - K52.9) 11/16/2023 LLQ pain (ICD-10 - R10.32) 03/07/2024 Colitis (ICD-10 - K52.9) 03/27/2024 Other ulcerative colitis with rectal bleeding (ICD-10 - K51.811) 07/30/2023 Diverticulitis (ICD-10 - K57.92) PLAN OF TREATMENT Pending Test Test Name Order Date BUN 12/21/2022 BUN 11/16/2023 BUN 03/19/2023 CREATININE 12/21/2022 CREATININE 03/19/2023 LIVER PROFILE 03/19/2023 LIVER PROFILE 03/27/2024 LIVER PROFILE 11/16/2023 LIPASE 03/19/2023 LIPASE 03/27/2024 LIPASE 11/16/2023 CRP 03/19/2023 CRP 03/27/2024 CBC w DIFF 12/21/2022 CBC w/o DIFF 11/16/2023 CBC w/o DIFF 03/27/2024 CBC w/o DIFF 03/19/2023 SED RATE (ESR) 03/27/2024 SED RATE (ESR) 03/19/2023 HEPATITIS A,B,C PROFILE 03/27/2024 STOOL WBC 03/07/2024 OVA & PARASITES (O&P) 03/07/2024 CT ABD & PELVIS WITH CONTRAST 11/16/2023 CT ABD & PELVIS WITH CONTRAST 12/21/2022 CT ABD & PELVIS WITH CONTRAST 03/19/2023 PROMETHEUS IBD SGI 03/27/2024 TSH REFLEX FREE T4 12/21/2022 STOOL WBC 12/21/2022 T SPOT TB 03/27/2024 C DIFFICILE RFLX PCR 03/07/2024 CALPROTECTIN, STOOL 12/21/2022 CALPROTECTIN, STOOL 03/19/2023 Thiopurine Methyltransferase 03/27/2024 GI PANEL 03/07/2024 Future Test Test Name Order Date UPPER GI ENDOSCOPY 01/04/2023 COLONOSCOPY 01/04/2023 CREATININE 11/19/2023 COLONOSCOPY 03/07/2024 Insurance Providers Payer Name Payer Address Payer Phone Subscriber Number Group Number Insured Name Patient Relationship to Insured Coverage Start Date Coverage End Date MEDICARE OF [place] [address] [place] [address] [id number] ANIL TEMPLE Self - patient is the insured [employer] ATTN CLAIMS [address] [place] [address] [phone] [id number] ANIL TEMPLE Self - patient is the [...]
--- OUTSIDE RECORDS SUMMARY | 2024-04-05 08:02 | XMS_ITS ---
Author Organization [facility] Address [address] [place] [phone] Care Team Providers Care Poultry Barn Manager Name Role Phone Sergo Nation MD Primary Care Provider Virgilio Luis Jr REASON FOR VISIT labs/ waiting on pt call back MEDICATIONS Medication SIG (Take, Route, Fr equency, Duration) Notes Start Date End Date Status Fidaxomicin 200 MG 1 tablet Orally Twic e a day for 10 day(s) 03/20/2024 Active Encounters Encounter Location Date Provider Diagnosis [facility] [address] [place] [phone] 03/20/2024 Virgilio Brady Jr PLAN OF TREATMENT Medication Medication Name Sig Start Date Stop Date Notes Fidaxomicin 200 MG 1 tablet Orally Twic e a day for 10 day(s) 03/20/2024
--- OUTSIDE RECORDS SUMMARY | 2024-04-05 08:02 | XMS_ITS | Encounter Summary ---
Author Organization [facility] [place] [address] Care Team Providers Care Supervisor Evaporator Name Role Phone Sergo Nation MD Primary Care Provider [phone] Reason for Visit * Reason Onset Date Comments Procedure 03/12/2024 Cardiac clearanc e for colonoscopy Encounter Details Date Type Department Care Team ([facility] Contact Info) Description 03/12/2024 Telephone [facility] - [facility] [address] [facility] [address] [place] [phone] Hernando Méndez MD [address] [facility] [address] [place] [address] Procedure (Cardiac clearance for colonoscopy ) Social [...] 03/12/2024 3:58 PM EST Sade aware of [employer] message and confirmed fax #. Sending message [...] confirm she was aware of that but [facility] the site where they are doing to colonoscopy is asking for something in writing from the central service supply distributor stating pt's heart is healthy enough for the colonoscopy. I did state I would send this on. Sade did express understanding. Last OV was with Dori in 04/2023 Please advise. Thank you. * Nya Lowery MA - 03/12/2024 10:44 AM EST Sade from [facility] GI called. The patient is having a colonoscopy on 03/25/[address] Brady is looking for cardiac clearance. Please advise. documented in this encounter Plan of Treatment Upcoming Encounters Date Type Department Care Team (Late st Contact Info) Description 05/02/2024 9:45 AM EST Office Visit Adult Medicine [address] [phone] Sergo Nation MD [address] [place] [address] documented as of this encounter Visit Diagnoses Not on filedocumented in this encounter Care Teams Supervisor Evaporator Relationship Specialty Start Date End Date Sergo Nation MD PCP - General Internal Medicine 09/17/20 documented as of this encounter
--- OUTSIDE RECORDS SUMMARY | 2024-04-05 08:02 | XMS_ITS ---
Author Organization [facility] Address [address] [place] [address] Care Team Providers Care Boiling House Hand Name Role Phone Sergo Nation MD Primary Care Provider Virgilio Luis Jr Unavailable REASON FOR VISIT colitis Encounters Encounter Location Date Provider Diagnosis [facility] Outpatient [address] [place], [place] [phone] 03/25/2024 Virgilio Brady Jr Colon polyps K63.5 and Colitis K52.9 ASSESSMENTS Encounter Date Diagnosis Assessment Notes Treatment Notes Treatment Clinical Notes 03/25/2024 Colon polyps (ICD-10 - K63.5) 03/25/2024 Colitis (ICD-10 - K52.9) PLAN OF TREATMENT No Information
[2024-04-05 08:57] LABS: MANUAL DIFF FLAG NO
[2024-04-05 09:00] LABS: Basophils Percent Auto 0.2 % (0-2); Eosinophils Absolute Auto 0.1 X10*3/uL (0.0-0.4); Eosinophils Percent Auto 0.8 % (0-4); Hematocrit 38.4 % (42.0-52.0); Hemoglobin 12.8 g/dl (14.0-18.0); Imm Gran Abs Auto 0.11 X10*3/uL (0.00-0.03); Imm Gran Pct Auto 1.3 % (0.0-0.4); Lymphocytes Absolute Auto 1.6 X10*3/uL (1.2-4.9); Lymphocytes Percent Auto 18.7 % (20-40); Mean Corpuscular HGB Conc 33.3 g/dl (31.0-36.0); Mean Corpuscular Hemoglobin 30.6 pg (27.0-33.0); Mean Corpuscular Volume 91.9 fL (80.0-98.0); Mean Platelet Volume 10.3 fL (9.4-12.4); Monocytes Absolute Auto 0.6 X10*3/uL (0.1-1.2); Monocytes Percent Auto 6.9 % (2-11); Neutrophils Percent Auto 72.1 % (45-73); Platelet Count 207 X10*3/uL (160-400); Red Blood Count 4.18 X10*6/uL (4.60-5.80); Red Cell Distribution Width 12.8 % (11.0-16.0); White Blood Count 8.3 X10*3/uL (4.8-10.8)
[2024-04-05 09:37] LABS: Erythrocyte Sedimentation Rate 7 MM/HR (0-15)
[2024-04-05 09:49] LABS: Alanine Aminotransferase 16 U/L (0-40); Albumin Level 3.6 g/dL (3.5-5.0); Alkaline Phosphatase 48 U/L (39-117); Aspartate Amino Transferase 19 U/L (5-37); Bilirubin Direct 0.2 mg/dL (0.0-0.5); Bilirubin Total 0.6 mg/dL (0.0-1.0); C Reactive Protein 0.24 mg/dL (< or = 0.50); Lipase 83 U/L (8-78)
[2024-04-05 10:07] LABS: HBS Num1 0.57 mIU/mL (0-7.99); HBc Num1 0.09 S/CO (0.00-0.79); HBsAGNum1 0.31 S/CO (0.00-0.99); Hepatitis A Antibody IgM 0.17 Index (0-0.79); Hepatitis B Core Antibody Nonreactive (Nonreactive); Hepatitis B Surface Antigen Negative (Negative); ~HepC Num1 0.05 S/CO (0.00-0.79); ~Hepatitis A Antibody IgM Nonreactive (Nonreactive); ~Hepatitis B Surface Antibody NONREACTIVE (Nonreactive); ~Hepatitis C Antibody Nonreactive (Nonreactive)
[2024-04-11 18:28] LABS: TPMT Activity 16
== END 2024-04-05 07:59 | disposition home or self-care (01) ==
LOC: HO.LAB 07:58
PROVIDERS: PCP Internal Medicine; Visit Provider Internal Medicine Gastroenterology
DX: K51.811 Other ulcerative colitis with rectal bleeding (principal); Z11.59 Encounter for screening for other viral diseases; Z72.89 Other problems related to lifestyle; K57.53 Diverticulitis of both small and large intestine without perforation or abscess with bleeding; R19.7 Diarrhea, unspecified; R93.3 Abnormal findings on diagnostic imaging of other parts of digestive tract; K22.70 Barrett's esophagus without dysplasia; K62.3 Rectal prolapse; R10.32 Left lower quadrant pain; K57.92 Diverticulitis of intestine, part unspecified, without perforation or abscess without bleeding
CPT/HCPCS: 36415; 80076; 81479; 82397; 83520; 83690; 84433; 85025; 85652; 86140; 86704; 86706; 86709; 86803; 87340; 88346; 88350

== ENCOUNTER 2024-04-07 08:38 | Outpatient (REF) | payer MEDICARE, SELFPAY ==
--- OUTSIDE RECORDS SUMMARY | 2024-04-07 08:57 | XMS_ITS | Clinical Summary ---
Author Organization [facility] Address [address] [place] [address] Phone Care Team Providers Care Life Skills Coach Name Role Phone Sergo Nation MD Primary Care Provider [phone] Allergies No known active allergies Medications cyanocobalamin (VITAMIN B-12) 2,000 mcg tablet Take 1 tablet (2,000 mcg total) by mouth 1 (one) time each day. 11/16/19 24 Active omeprazole (PriLOSEC) [address] capsule Take 1 capsule (20 mg total) by mouth 1 (one) time each day. 11/12/19 24 Active predniSONE (DELTASONE) 10 mg tablet 3 tabs po x 3 days then 2 tabs po x 3 days the one tab po x 3 days 10/26/19 24 Active amLODIPine (NORVASC) 5 mg tablet Take 1 tablet (5 mg total) by mouth 1 (one) time each day. 08/09/19 24 Active mesalamine (APRISO) 0.375 gram 24 hr capsule Take 1 capsule (0.375 g total) by mouth 4 (four) times a day. 04/12/19 24 Active cholecalcifero l (VITAMIN D-3) 25 mcg (1,000 unit) tablet Take by mouth daily. Active fluticasone propionate (FLONASE) 50 mcg/actuation nasal spray Administer 2 sprays into each nostril 1 (one) time each day if needed. 11/10/19 21 Active valsartan (DIOVAN) 320 mg tablet TAKE 1 TABLET BY MOUTH DAILY 30 tablet 5 02/05/20 24 Active carvediloL (COREG) 25 mg tablet Take 1 tablet (25 mg total) by mouth 2 (two) times a day with meals. 180 tablet 02/05/20 24 Active buPROPion XL (WELLBUTRIN XL) 150 mg 24 hr tablet Take 1 tablet (150 mg total) by mouth 1 (one) time each day in the morning. 90 tablet 02/22/20 24 Active zolpidem (AMBIEN) 10 mg tablet TAKE ONE TABLET BY MOUTH DAILY AT BEDTIME NEEDED FOR SLEEP FOR UP TO 28 DAYS; MAX DAILY AMOUNT IS 10MG. 28 tablet 04/03/19 25 Active zolpidem (AMBIEN) 10 mg tablet Take 1 tablet (10 mg total) by mouth at bedtime as needed for sleep for up to 28 days. at bedtime Max Daily Amount: 10 mg 28 tablet 02/25/20 24 025 Discontinued Active Problems Problem Noted Date Diagnosed [...] Type Department Care Team Description 03/12/2024 Telephone [facility] - [facility] [address] [facility] [address] [place] [phone] Hernando Méndez MD Procedure (Cardiac clearance for colonoscopy ) 01/07/2024 Nurse Triage Adult Medicine [address] [phone] Gris Mueller PA from Last 3 Months Immunizations Name Administration Dates Next Due Influenza Quadravalent, MDCK , 0.5ml, with preservative (Flucelvax) 6mo and older 11/09/2016 Influenza trivalent, 0.5mL ( Fluad) 65yo and older 11/11/2021,11/28/2020,11/26/2019,12/25 Influenza trivalent, 0.5mL, preservative free (Fluarix; FluLaval; Fluzone) ages 6mo and older (Afluria) 3 years and older 12/14/2015,11/12/2014,11/27/2012 Influenza, Unspecified 12/19/2018,11/06/2013 FriendsClear SARS-CoV-2 COVID-19, mRNA, LNP-S, preservative free 11/21/2020,04/26/2020,04/20/2020,04/19 Pneumococcal conjugate 13 va lent (Prevnar 13, PCV13) 2mo and older 01/01/2019 Pneumococcal polysaccharide 23 valent (Pneumovax 23) 2yo and older 04/18/2021 Tdap Tetanus diptheria acell ular pertussis (Boostrix; Adacel) 7yo and older 04/20/2015 Zoster recombinant (Shingrix ) 19yo and older 09/21/2021,06/19/2021 Surgical History Surgery Date Site/Laterality Comments COLONOSCOPY PROCEDURE: DE COLONOSCOPY STOMA DX INCLUDING COLLJ SPEC SPX; COMMENT: age 60 TONSILLECTOMY PROCEDURE: HISTORICAL TONSILLECTOMY BACK SURGERY 08/2013 PROCEDURE: HISTORICAL BACK SURGERY; COMMENT: L4-5 decompression surgery, Dr Valentine. Medical History Medical History Date Comments EDOUARD (obstructive sleep apnea) DX :EDOUARD (obstructive sleep apnea); COMMENT: dental appliance helping HTN (hypertension) DX:HTN (hyper tension) Low back pain DX:Low back pain ; COMMENT: [employer] [facility] sport injection therapy GERD (gastroesophageal reflux disease) [...] Assigned at Male 04/25/2022 1:01 AM EST Legal Sex Male 5:10 AM EST Gender Identity Male 04/25/2022 1:01 AM EST Sexual Orientation Straight 04/25/2022 1: 01 AM EST Obstetrics History Last Filed Vital Signs Vital [...] 9:45 AM EST Office Visit Adult Medicine [facility] [address] [place] [address] Sergo Nation MD [address] [place] [address] Health Maintenance Due Date Last Done Comments RSV Immunization Patients 60+ Years Old (1 - Risk 60-74 years 1-dose series) 2012 DTaP,Tdap,and Td Vaccines (2 - Td or Tdap) 05/18/2015 04/20/2015 Social Influencers of Health Screening 02/04/2022 COVID-19 Vaccine ( season) 2023 06/08/2021, 11/21/2020, 05/13/2020, Additional history exists Depression Screening 10/25/2024 10/26/2023 Falls Risk Assessment 10/25/2024 10/26/2023 Hypertension/CHF/CAD Annual BMP Blood Test 10/25/2024 10/26/2023, 10/26/2023 Medicare Annual Wellness Visit 10/25/2024 10/26/2023 Cholesterol Screening (Lipid Panel) 10/24/2027 10/23/2022 Colorectal Cancer Screening: Colonoscopy 01/16/2033 01/16/2023 Hepatitis C Screening Completed 12/02/2012 Pneumococcal Vaccine: 50+ Years Completed 04/18/2021, 01/01/2019 Zoster Vaccines Completed [...] patient's age to complete this topic Meningococcal B Vacine Aged Out No lo nger eligible based on patient's age to complete [...] Anatomical Region Laterality Modality Computed Tomogra phy us Provider Onbase IMG CT PROCEDURES Final Resul t * Annual BMP Blood Test (10/26/2023) Annual BMP Blood Test abstracted us Historical Provider HEALTH MAINTENANCE Final Result * Falls Risk Assessment (10/26/2023) Falls Risk Assessment abstracted us Historical Provider HEALTH MAINTENANCE Final Result * Depression Screening (10/26/2023) [facility] Depression Screening abstracted [facility] Provider HEALTH MAINTENANCE Final Result * Colonoscopy (01/16/2023) [facility] Colonoscopy no interpretation , abstracted Anatomical Region Laterality Modality Other [facility] Provider HEALTH MAINTENANCE Final Result * (ABNORMAL) Lipid panel (10/23/2022) [facility] LDL/HDL Ratio 5(A) 0 - 4 Triglycerides 146 0 - 150 mg/dL Cholesterol 170 0 - 200 mg/dL HDL 34(A) >=40 mg/dL LDL Cholesterol 107(A) 0 - 100 mg/dL Blood Venous blood specimen / Unknown Result [facility] Provider LAB BLOOD ORDERABLES Hemalatha l Result * Hepatitis C Screening (12/02/2012) [facility] Hepatitis C Screening abstracted [facility] Provider HEALTH MAINTENANCE Final Result from Last 3 Months or Most Recently Relevant to Health Maintenance Insurance MEDICARE [facility] Care Teams Life Skills Coach Relationship Specialty Start Date End Date Sergo Nation MD PCP - General Internal Medicine 09/17/20
--- OUTSIDE RECORDS SUMMARY | 2024-04-07 08:57 | XMS_ITS ---
Author Organization [facility] Address [address] [facility] [address] [place] [phone] Care Team Providers Care Filter Screen Cleaner Name Role Phone Sergo Nation MD Primary Care Provider Mayr Kay Brady Jr, Virgilio Sandra [phone] REASON FOR VISIT still having problems MEDICATIONS Medication SIG (Take, Route, Frequency, Duration) Notes Start Date End Date Status Humira (2 Pen) 40 MG/0.4ML 0.4 mL Subcutaneous every 2 weeks 03/27/2024 Active Humira-CD/UC/HS Starter 80 MG/0.8ML as directed Subcutaneous 03/27/2024 Act vickie Encounters Encounter Location Date Provider Diagnosis [facility] [address] [address] 03/27/2024 Virgilio Brady Jr Other ulcerative colitis with rectal bleeding K51.811 ASSESSMENTS Encounter Date Diagnosis Assessment Notes Treatment Notes Treatment Clinical Notes 03/27/2024 Other ulcerative colitis with rectal bleeding (ICD-10 - K51.811) PLAN OF TREATMENT Medication Medication Name Sig Start Date Stop Date Notes Humira (2 Pen) 40 MG/0.4ML 0.4 mL Subcut aneous every 2 weeks 03/27/2024 Humira-CD/UC/HS Starter 80 MG/0.8ML as directed Subcutaneous 03/27/2024 Pending Test Test Name Order Date LIVER PROFILE 03/27/2024 LIPASE 03/27/2024 CRP 03/27/2024 CBC w/o DIFF 03/27/2024 SED RATE (ESR) 03/27/2024 HEPATITIS A,B,C PROFILE 03/27/2024 PROMETHEUS IBD SGI 03/27/2024 T SPOT TB 03/27/2024 Thiopurine Methyltransferase 03/27/2024
--- OUTSIDE RECORDS SUMMARY | 2024-04-07 08:58 | XMS_ITS | Patient Health Record ---
Author Organization [facility] Address [address] [place] [address] Care Team Providers Care Television Anchor Name Role Phone Sergo Nation MD Primary Care Provider Virgilio Luis Jr ALLERGIES No Known Allergies RESULTS Component Value Reference Range Notes Complete Blood Count no Diff Reviewed date:01/03/2024 09:44:12 AM Interpretation: Performing Lab:[facility], [address] [place] [phone] Notes/Report: White Blood Count 5.0 4.8-10.8 X10*3/uL [...] Panel Reviewed date:01/03/2024 09:44:38 AM Interpretation: Performing Lab:[facility], [address] [place] [phone] Notes/Report: Bilirubin Total 0.4 0.0-1.0 mg/dL Bilirubin Direct 0.1 0.0-0.5 mg/dL Aspartate Amino Transferase 26 5-37 U/L Alanine Aminotransferase 23 0-40 U/L Total Protein 6.3 6.5-8.0 g/dL Albumin Level 3.9 3.5-5.0 g/dL Alkaline Phosphatase 67 39-117 U/L Blood Urea Nitrogen Reviewed date:01/03/2024 09:44:33 AM Interpretation: Performing Lab:[address] [address] Notes/Report: Blood Urea Nitrogen 13 9-16 mg/dL Creatinine Reviewed date:01/03/2024 09:44:27 AM Interpretation: Performing Lab:[address] [address] Notes/Report: Creatinine 0.83 0.5-1.4 mg/dL Estimated Glomerular Filt Rate > 60 NOTE: For -Belgian individuals, multiply the result by 1.210. Chronic Kidney Disease: Estimated GFR < 60 mL/min/1.73m2 Severe Kidney Disease: Estimated GFR < 15 mL/min/1.73m2 Lipase Reviewed date:01/03/2024 09:44:22 AM Interpretation: Performing Lab:[address] [address] Notes/Report: Lipase 13 8-78 U/L CT abdomen pelvis w con Reviewed date:01/11/2024 03:33:10 PM Interpretation: Performing Lab: Notes/Report: [address] [address] [address] Scan Report Signed Patient: Anil Temple MR#: [id number] : 1950 Acct:[id number] Age/Sex: 73 / M ADM Date: 01/10/24 Loc: HO.CT Attending Dr: Virgilio Brady MD Ordering Physician: Virgilio Brady MD Date of Service: 01/10/24 Procedure(s): CT abdomen pelvis w IV con Accession Number(s): [id number] cc: Virgilio Brady MD; Sergo Nation III, [...] MD 01/11/2024 02:50 PM [facility] Dictated By: Pj Butler MD Signed By: <Electronically signed by Pj Martinez MD in OV> 01/11/24 1450 DD/ 1543 TD/TT: 01/10/24 1603 Qa Tech: Leukocytes Stool Qualitative Reviewed date:03/20/2024 10:05:11 AM Interpretation: Performing Lab:[facility], [address] [place] [phone] Notes/Report: Leukocytes Stool Qualitative NEGATIVE NEGATIVE Ova and Parasite Reviewed date:03/26/2024 08:16:04 AM Interpretation: Performing Lab:[facility], [address] [place] [phone] Notes/Report: Ova and Parasite SEE NOTE OVA AND PARASITES, CONC AND PERM SMEAR Micro Number: [id number] Test Status: Final Specimen Source: Stool Specimen [...] infection. For additional information, please refer to [email or web address] (This link is being provided for informational/ educational purposes only.) THIS TEST WAS PERFORMED AT: [place] [address] JOVANNY ROY MD CDiff Gene PCR Reviewed date:03/20/2024 10:04:54 AM Interpretation: Performing Lab:[facility], [address] [place] [phone] Notes/Report: CDiff Gene PCR POSITIVE Negative Additional C. difficile toxin testing to be performed. CDiff Toxin Reviewed date:03/20/2024 10:05:01 AM Interpretation: Performing Lab:[facility], [address] [place] [phone] Notes/Report: CDiff Toxin Negative Negative CDIFF Interpretation SEE NOTE Likely C. difficile colonization. Continue contact precautions. GI PANEL Reviewed date:03/20/2024 02:18:35 PM Interpretation: Performing Lab:[facility], [address] [place] [phone] Notes/Report: Campylobacter Not Detected Not Detect. Plesiomonas [...] is performed by Multiplexed PCR, utilizing the [employer] Array. Pathology Reviewed date:03/28/2024 12:02:23 AM Interpretation: Performing Lab:[facility], [address] [place] [phone] Notes/Report: Complete Blood Count Auto Di ff Reviewed date:04/07/2024 08:45:34 AM Interpretation: Performing Lab:[facility], [address] [place] [phone] Notes/Report: White Blood Count 8.3 4.8-10.8 X10*3/uL Red Blood Count 4.18 4.60-5.80 X10*6/uL Hemoglobin 12.8 14.0-18.0 g/dl Hematocrit 38.4 42.0-52.0 % Mean Corpuscular Volume 91.9 80.0-98.0 fL Mean Corpuscular Hemoglobin 30.6 27.0-33.0 pg Mean Corpuscular HGB Conc 33.3 31.0-36.0 g/dl Red Cell Distribution Width 12.8 11.0-16.0 % Platelet Count 207 160-400 X10*3/uL Mean Platelet Volume 10.3 9.4-12.4 fL Neutrophils Percent Auto 72.1 45-73 % Imm Gran Pct Auto 1.3 0.0-0.4 % Lymphocytes Percent Auto 18.7 20-40 % Monocytes Percent Auto 6.9 2-11 % Eosinophils Percent Auto 0.8 0-4 % Basophils Percent Auto 0.2 0-2 % NRBC Pct Auto 0.0 0.0-0.2 /100WBC Neutrophils Absolute Auto 6.0 2.0-8.3 x10*3/u L Imm Gran Abs Auto 0.11 0.00-0.03 X10*3/uL Lymphocytes Absolute Auto 1.6 1.2-4.9 X10*3/u L Monocytes Absolute Auto 0.6 0.1-1.2 X10*3/uL Eosinophils Absolute Auto 0.1 0.0-0.4 X10*3/u L Basophils Absolute Auto 0.0 0.0-0.2 X10*3/uL NRBC Abs Auto 0.000 0.0-0.012 X10*3/uL Erythrocyte Sedimentation Ra te Reviewed date:04/07/2024 08:45:26 AM Interpretation: Performing Lab:[address] [phone] Notes/Report: Erythrocyte Sedimentation Rate 7 0-15 MM/HR Patients with polycythemia and many hemoglobin abnormalities may have depressed sed rates whereas patients with anemia may have elevated sed rates. Liver Panel Reviewed date:04/07/2024 08:45:20 AM Interpretation: Performing Lab:[address] [address] Notes/Report: Bilirubin Total 0.6 0.0-1.0 mg/dL Bilirubin Direct 0.2 0.0-0.5 mg/dL Aspartate Amino Transferase 19 5-37 U/L Alanine Aminotransferase 16 0-40 U/L Total Protein 6.0 6.5-8.0 g/dL Albumin Level 3.6 3.5-5.0 g/dL Alkaline Phosphatase 48 39-117 U/L C Reactive Protein Reviewed date:04/07/2024 08:45:57 AM Interpretation: Performing Lab:[facility], [address] [place] [phone] Notes/Report: C Reactive Protein 0.24 < or = 0.50 mg/dL Lipase Reviewed date:04/07/2024 08:45:46 AM Interpretation: Performing Lab:[address] [address] Notes/Report: Lipase 83 8-78 U/L Hepatitis A,B,C Profile Reviewed date:04/07/2024 08:45:40 AM Interpretation: Performing Lab:[address] [address] Notes/Report: Hepatitis A Antibody IgM Nonreactive Nonreactive IgM antibodies to HAV not detected; does not exclude early acute or recovered HAV infection. Hepatitis B Surface Antibody NONREACTIVE Nonreactive Nonreactive: < 8.00 mIU/mL Hepatitis B Core Antibody Nonreactive Nonreactive Hepatitis C Antibody Nonreactive Nonreactive Antibodies to HCV not detected; does not exclude early acute HCV infection. 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) Active confirmed 238455880 Problem Rectal bleeding (K62.5) Active confirmed 14171115 Problem Reddy esophagus (K22.70) Active confirmed Reddy esophagus (691167898) Problem Colitis (K52.9) Active confirmed 866439 04 Problem LLQ pain (R10.32) Active confirmed 3017 87237 Problem Other ulcerative colitis with rectal bleeding (K51.811) Active confirmed 68236905 Problem Diverticulitis (K57.92) Active confirmed 253124520 VITAL SIGNS Temperature 98.6 degrees Fahrenheit 07/30/2023 Blood pressure diastolic 00 mm Hg 01/11/2024 Height 5 ft 8 in in 01/11/2024 Blood pressure systolic 00 mm Hg 01/11/2024 Weight 190 lbs 01/11/2024 BMI 28.89 kg/m2 01/11/2024 Encounters Encounter Location Date Provider Diagnosis [facility] [address] [place] [phone] 03/25/2024 Virgilio Brady Jr Colon polyps K63.5 and Colitis K52.9 [facility] [address] [place] [phone] 05/02/2023 Virgilio Brady Jr [facility] [address] [place] [phone] 07/30/2023 Virgilio Brady Jr Reddy's esophagus without dysplasia K22.70 ; Other ulcerative colitis with rectal bleeding K51.811 and Diverticulitis K57.92 [facility] [address] [place] [address] 01/30/2024 Virgilio Brady Jr [facility] [address] [place] [phone] 12/06/2023 Virgilio Brady Jr [facility] [address] [place] [address] 01/11/2024 Virgilio Brady Jr Colitis K52.9 [facility] [address] [place] [address] 04/30/2023 Virgilio Brady Jr [facility] [address] [place] [phone] 07/25/2023 Virgilio Brady Jr [facility] [address] [place] [address] 08/29/2023 Virgilio Brady Jr [facility] [address] [place] [address] 11/16/2023 Virgilio Brady Jr LLQ pain R10.32 [facility] [address] [place] [phone] 01/03/2024 Virgilio Brady Jr [facility] [address] [place] [phone] 01/11/2024 Virgilio Brady Jr [facility] [address] [place] [address] 03/07/2024 Virgilio Brady Jr Colitis K52.9 [facility] [address] [place] [address] 03/20/2024 Virgilio Brady Jr [facility] [address] [place] [phone] 03/27/2024 Virgilio Brady Jr Other ulcerative colitis [...] CREATININE 12/21/2022 LIVER PROFILE 03/19/2023 LIVER PROFILE 03/27/2024 LIVER PROFILE 11/16/2023 LIPASE 11/16/2023 LIPASE 03/19/2023 LIPASE 03/27/2024 CRP 03/27/2024 CRP 03/19/2023 CBC w DIFF 12/21/2022 CBC w/o DIFF 11/16/2023 CBC w/o DIFF 03/27/2024 CBC w/o DIFF 03/19/2023 SED RATE (ESR) 03/19/2023 SED RATE (ESR) 03/27/2024 HEPATITIS A,B,C PROFILE 03/27/2024 STOOL WBC 03/07/2024 [...] Date MEDICARE OF [place] [address] [place] [address] [id number] ANIL TEMPLE Self - patient is the insured [employer] ATT[employer] CLAIMS [address] [place] [address] [phone] [id number] ANIL TEMPLE Self - patient is the [...]
--- OUTSIDE RECORDS SUMMARY | 2024-04-07 08:58 | XMS_ITS ---
Author Organization [facility] Address [address] [place] [address] Care Team Providers Care Household Appliance Installer Name Role Phone Sergo Nation MD Primary Care Provider Virgilio Luis Jr [phone] REASON FOR VISIT labs/ waiting on pt call back MEDICATIONS Medication SIG (Take, Route, Fr equency, Duration) Notes Start Date End Date Status Fidaxomicin 200 MG 1 tablet Orally Twic e a day for 10 day(s) 03/20/2024 Active Encounters Encounter Location Date Provider Diagnosis [facility] [address] [place] [phone] 03/20/2024 Virgilio Brady Jr PLAN OF TREATMENT Medication Medication Name Sig Start Date Stop Date Notes Fidaxomicin 200 MG 1 tablet Orally Twic e a day for 10 day(s) 03/20/2024
--- OUTSIDE RECORDS SUMMARY | 2024-04-07 08:58 | XMS_ITS ---
Author Organization [facility] Address [address] [place] [address] Care Team Providers Care Sieve Repairer Name Role Phone Sergo Nation MD Primary Care Provider Virgilio Luis Jr Unavailable REASON FOR VISIT colitis Encounters Encounter Location Date Provider Diagnosis [facility] [address] [place], [place] [phone] 03/25/2024 Virgiloi Brady Jr Colon polyps K63.5 and Colitis K52.9 ASSESSMENTS Encounter Date Diagnosis Assessment Notes Treatment Notes Treatment Clinical Notes 03/25/2024 Colon polyps (ICD-10 - K63.5) 03/25/2024 Colitis (ICD-10 - K52.9) PLAN OF TREATMENT No Information
--- OUTSIDE RECORDS SUMMARY | 2024-04-07 08:58 | XMS_ITS | Encounter Summary ---
Author Organization [facility] [address] Care Team Providers Care Outdoor Landscape Architect Name Role Phone Sergo Nation MD Primary Care Provider [phone] Reason for Visit * Reason Onset Date Comments Procedure 03/12/2024 Cardiac clearanc e for colonoscopy Encounter Details Date Type Department Care Team ([facility] Contact Info) Description 03/12/2024 Telephone [facility] [address] [facility] [address] [place] [phone] Hernando Méndez MD [address] [facility] [address] [place] [address] Procedure (Cardiac clearance for colonoscopy ) Social [...] Orientation Straight 04/25/2022 1: 01 AM EST documented as of this encounter Progress Notes * Osman Whipple MA - 03/12/2024 3:58 PM EST Sade aware of [employer] message and confirmed fax #. Sending message [...] confirm she was aware of that but [facility] the site where they are doing to colonoscopy is asking for something in writing from the inspector multifocal lens stating pt's heart is healthy enough for [...] EST Office Visit Adult Medicine [facility] [address] [place] [phone] Sergo Nation MD [address] [place] [phone] documented as of this encounter Visit Diagnoses Not on filedocumented in this encounter Care Teams Outdoor Landscape Architect Relationship Specialty Start Date End Date Sergo Nation MD PCP - General Internal Medicine 09/17/20 documented as of this encounter
[2024-04-10 01:28] LABS: TS Negative Control Passed; TS Panel A 0; TS Panel B 0; TS Positive Control Passed; TSpotTB Negative (Negative)
== END 2024-04-07 08:39 | disposition home or self-care (01) ==
LOC: HO.LAB 08:38
PROVIDERS: PCP Internal Medicine; Visit Provider Internal Medicine Gastroenterology
DX: K51.811 Other ulcerative colitis with rectal bleeding (principal)
CPT/HCPCS: 36415; 86481

== ENCOUNTER 2024-09-30 10:42 | Outpatient (RCR) | payer MEDICARE, SELFPAY ==
[2024-09-30 10:50] VITALS: BP 133/77; PULSE 57; RESP 16; TEMP 36.6; O2SAT 96
[2024-09-30] MEDS: Ustekinumab 520 MG in 0.9 % Sodium Chloride 146 ML 250 MG IV (11:47)
== END 2024-09-30 13:20 | disposition home or self-care (01) ==
LOC: HO.INF 10:42
PROVIDERS: Visit Provider Internal Medicine Gastroenterology
DX: K51.811 Other ulcerative colitis with rectal bleeding (principal)
CPT/HCPCS: 96365; J3358

== ENCOUNTER 2024-11-25 11:54 | Outpatient (AMB) | payer MEDICARE, SELFPAY ==
--- OUTSIDE RECORDS SUMMARY | 2024-01-30 06:00 | XMS_ITS ---
Author Organization [facility] Address [address] [place] [address] Care Team Providers Care Lumber Handler Name Role Phone Sergo Nation MD Primary Care Provider Virgilio Luis Jr REASON FOR VISIT colitis,sandoval's Encounters Encounter Location Date Provider Diagnosis [facility] [address] [place] [address] 01/30/2024 Virgilio Brady Jr Plan Of Treatment Next Appt Details Provider Name:Virgilio worrell Jr, 02/11/2025 09:20:00 AM, [address], [address], [place], [address], Progress Notes * KEVAN TEMPLE HDOB:[birth year] (74 yo M)Acc No.[id number]:01/30/2024 Progress Notes Patient: KEVAN SANCHES Provider: Isaias Brady MD :1950 A ge:73 Y S ex:Male Date:01/30/2024 Address:[address] [place] [address], [place], [id number] Pcp:Sergo Nation MD Subjective: * Chief Complaints: * 1 . Colitis,sandoval's. * Medical History: Objective: * Vitals: Assessment: Plan: * Treatment: * * The named appointment provid er may or may not be the originator of this progress note, and it is not deemed complete until electronically signed by the appointment provider. Sign off status: Pending * Provider: Isaias Brady MD Date: 1 04/01/2023 Generated for Tyesha mcneal/Gayle/Natalie on: 0 11/25/2024 01:13 PM EDT
--- OUTSIDE RECORDS SUMMARY | 2024-03-25 08:30 | XMS_ITS ---
Author Organization [facility] Address [address] [facility] [address] [place] [address] Care Team Providers Care Director Of Instruction Name Role Phone Sergo Nation MD Primary Care Provider Virgilio Luis Jr REASON FOR VISIT colitis Encounters Encounter Location Date Provider Diagnosis [facility] Outpatient [address] [place], [place] [id number] 03/25/2024 Virgilio Brady Jr Colon polyps K63.5 and Colitis K52.9 Assessments Encounter Date Diagnosis (ICD Code) Assessment Notes Treatment Notes Treatment Clinical Notes Section Notes 03/25/2024 Colon polyps (ICD-10 - K63.5) 03/25/2024 Colitis (ICD-10 - K52.9) Plan Of Treatment Next Appt Details Provider Name:Virgilio worrell Jr, 02/11/2025 09:20:00 AM, [address] [facility], [address], [place], [address], Progress Notes * KEVAN TEMPLE HDOB:[birth year] (74 yo M)Acc No.[id number]:03/25/2024 COLON WITH MAC Patient: KEVAN SANCHES Provider: Isaias Brady MD :1950 A ge:73 Y S ex:Male Date:03/25/2024 Address:[address] [place] [address] Pcp:Sergo Nation MD Subjective: * Chief Complaints: * 1 . Colitis. * Medical History: Objective: * Vitals: Assessment: * Assessment: 1. C olon polyps - K63.5 (Primary) 2 . C olitis - K52.9 Plan: * Treatment: * Procedure Codes: 4 5385 LESION REMOVAL COLONOSCOPY, 67865 COLONOSCOPY AND BIOPSY, Modifiers: 59 , 3866F INTRVL 3+YRS PTS CLNSCP DOCD * * The named appointment provid er may or may not be the originator of this progress note, and it is not deemed complete until electronically signed by the appointment provider. Sign off status: Pending * Provider: Isaias Brady MD Date: 0 03/25/2024 Generated for Tyesha mcneal/Gayle/Monyitting on: 0 11/25/2024 01:13 PM EDT
--- NOTE | 2024-11-25 11:58 | AM.OFFWIN_ITS ---
Intake Vital Signs 3 11/25/24 11:59 Height 5 ft 8 in Weight 194 lb BMI 29.5 BP 120/66 Blood Pressure Location Rt brachial Position Sitting Pulse 61 Pulse Source Pulse Oximeter Temp 98.4 F Temp Source Oral Pulse Oximetry (%) 97 Oxygen Delivery Method Room Air Intake Visit Reasons: ep pain in left knee Intake Note: pt presents with lt knee pain and swelling Patient Tobacco Use Status: Never used Tobacco Allergies No Known Allergies Allergy (Verified 11/25/24 12:03) Medication List - Last Reconciled 11/25/24 by Dirk Lynne MD amlodipine 5 mg PO DAILY apixaban (Eliquis) 5 mg PO BID bupropion HCl XL 150 mg PO QAM carvedilol 25 mg PO BID cholecalciferol (vitamin D3) (Vitamin D3) 25 mcg PO DAILY lorazepam 0.5 mg PO mesalamine 1,000 mg [place] BEDTIME omeprazole 20 mg PO DAILY ustekinumab (Stelara) mg subcut valsartan 320 mg PO DAILY zolpidem 10 mg PO BEDTIME PRN Do you need a note to return to daycare/school/sports/work: No HPI ep pain in left knee 2 HPI0 Details History of Present Illness The patient is a 74-year-old male presenting with symptoms of knee bursitis. Left Knee Bursitis: - Patient reports swelling identified as a bursa by his primary care physician. - Symptom onset occurred at the beginnin g of the month. - Diagnostic imaging was performed, with x-rays showing no joint damage. - Symptoms include increasing hardness a nd pressure in the knee, inhibiting normal functioning. - Primary care recommended fluid drainag e; an orthopedic consultation is scheduled for the of the month. - Patient reports having used ice, with no significant improvement. - Denies redness around the affected are a or calf pain. - Noted a correlation between symptom on set and physical activity, such as unpacking a suitcase after a trip and extensive walking - No functional limitations in knee bend ing reported. Social History: - The patient is retired and at home. - No current employment. Diagnostic Results: - Imaging: X-ray indicated no joint jayla ge. Problem List - Knee Bursitis Plan 1. Knee Bursitis - Plan to instruct the patient on using an SANDRA wrap to manage swelling. - Consider the fluid reabsorption, avoid ing further irritation. - Reinforce cessation of rubbing or exce ssive manipulation. - Await specialist orthopedic consultati on scheduled on the for possible aspiration. - may continue application of ice - General: No fever no chills - Neurological: No headaches no dizziness - Ear nose throat: No sore throat no hearing difficulty no ear pain - Cardiovascular: No syncope, no chest pain, no palpitations PFSH Medical History Sleep apnea Diverticulosis Barretts esophagus Depression HTN (hypertension) Surgical History History of tonsillectomy History of back surgery H/O colonoscopy History of esophagogastroduodenoscopy (EGD) Social History Patient Tobacco Use Status: Never used Tobacco Physical Exam Vital Signs: Last Vital Signs Temp 98.4 F 11/25/24 11:59 Pulse 61 11/25/24 11:59 BP 120/66 11/25/24 11:59 Pulse Ox 97 11/25/24 11:59 Oxygen Delivery Method Room Air 11/25/24 11:59 BMI result Body Mass Index 29.5 Const General: no acute distress Orientation/consciousness: patient oriented x3 Eyes General: appearance normal, both eyes and all related structures Resp Effort & Inspection: normal respiratory effort and able to speak in complete sentences Auscultation: clear to auscultation bilaterally Neuro General: patient oriented x3 Extrem Elbow/forearm/wrist images: 2 1. Round fluctuant swelling without redness or pain, range of motion intact Psych Mental Status: mental status grossly normal Assessment & Plan Assessment & Plan (1) Bursitis of left knee: Code(s): M70.52 - Other bursitis of knee, left knee Qualifiers: Knee bursitis location: other knee bursa Qualified Code(s): M70.52 - Other bursitis of knee, left knee Plan History of Present Illness The patient is a 74-year-old male presenting with symptoms of knee bursitis. Left Knee Bursitis: - Patient reports swelling identified as a bursa by his primary care physician. - Symptom onset occurred at the beginning of the month. - Diagnostic imaging was performed, with x-rays showing no joint damage. - Symptoms include increasing hardness and pressure in the knee, inhibiting normal functioning. - Primary care recommended fluid drainage; an orthopedic consultation is scheduled for the of the month. - Patient reports having used ice, with no significant improvement. - Denies redness around the affected area or calf pain. - Noted a correlation between symptom onset and physical activity, such as unpacking a suitcase after a trip and extensive walking - No functional limitations in knee bending reported. Social History: - The patient is retired and at home. - No current employment. Diagnostic Results: - Imaging: X-ray indicated no joint damage. Problem List - Knee Bursitis Plan 1. Knee Bursitis - Plan to instruct the patient on using an SANDRA wrap to manage swelling. - Consider the fluid reabsorption, avoiding further irritation. - Reinforce cessation of rubbing or excessive manipulation. - Await specialist orthopedic consultation scheduled on the for possible aspiration. - may continue application of ice Coding Level of Care Code New Pt Level 3 (57293) Diagnoses Bursitis of other bursa of left knee M70.52 Knee bursitis location: other knee bursa
[2024-11-25 11:59] VITALS: BP 120/66; PULSE 61; TEMP 36.9; O2SAT 97; BMI 29.5
--- OUTSIDE RECORDS SUMMARY | 2024-11-25 13:13 | XMS_ITS ---
Author Name [facility] Care Team Organization Name Specialty Phone Email Start Date End Da te [facility] 10/15/2024 [facility] YEN GUPTA Primary Care 01/03/2022
--- OUTSIDE RECORDS SUMMARY | 2024-11-25 13:13 | XMS_ITS | Clinical Summary ---
Author Organization [address] [facility] Address [address] [place] [address] Phone Care Team Providers Care Laborer Pole Crew Name Role Phone Sergo Nation MD Primary Care Provider [phone] Allergies No known active allergies Medications cyanocobalamin (VITAMIN B-12) 2,000 mcg tablet Take 1 tablet (2,000 mcg total) by mouth 1 (one) time each day. 11/16/19 24 Active predniSONE (DELTASONE) 10 mg tablet 3 tabs po x 3 days then 2 tabs po x 3 days the one tab po x 3 days 10/26/19 24 Active cholecalciferol (VITAMIN D-3) 25 mcg (1,000 unit) tablet Take by mouth daily. Active fluticasone propionate (FLONASE) 50 mcg/actuation nasal spray Administer 2 sprays into each nostril 1 (one) time each day if needed. 11/10/19 21 Active adalimumab (HUMIRA) 40 mg/0.8 mL syringe Inject 0.8 mL (40 mg total) under the skin every 14 (fourteen) days. Active apixaban (ELIQUIS) 5 mg tabletIndicatio ns:Paroxysmal atrial fibrillation (CMS/HCC V24, CMS/HCC V28) Take 1 tablet (5 mg total) by mouth 2 (two) times a day. 60 tablet 11 05/01/19 25 Active amLODIPine (NORVASC) 5 mg tablet Take 1 tablet (5 mg total) by mouth 1 (one) time each day. 90 tablet 2 05/03/19 25 Active omeprazole (PriLOSEC) [address] capsule Take 1 capsule (20 mg total) by mouth 1 (one) time each day. 90 each 2 05/03/19 25 Active valsartan (DIOVAN) 320 mg tablet TAKE 1 TABLET BY MOUTH DAILY 30 tablet 5 08/06/19 25 Active buPROPion XL (WELLBUTRIN XL) 150 mg 24 hr tablet TAKE 1 TABLET(150 MG) BY MOUTH 1 TIME EACH DAY IN THE MORNING 90 tablet 1 08/06/19 25 Active carvediloL (COREG) 25 mg tablet Take 1 tablet (25 mg total) by mouth 2 (two) times a day with meals. 180 tablet 1 08/20/19 25 Active zolpidem (AMBIEN) 10 mg tablet Take 1 tablet (10 mg total) by mouth at bedtime as needed for sleep. Max Daily Amount: 10 mg 28 tablet 2 09/02/19 25 Active LORazepam (ATIVAN) 0.5 mg tablet One tablet one hour prior to take off june repeat x 1 in flight if needed 6 tablet 10/01/19 25 Active Additional Information Patient not taking.Reported on 11/13/2024 mesalamine (APRISO) 0.375 gram 24 hr capsule TAKE 1 CAPSULE BY MOUTH FOUR TIMES DAILY 360 capsule 11/05/19 25 Active mesalamine (APRISO) 0.375 gram 24 hr capsule Take 1 capsule (0.375 g total) by mouth 4 (four) times a day. 120 capsule 05/03/19 25 025 Discontinued Active Problems Problem Noted Date [...] agents, we could consider renal artery duplex. Assessment & Plan (06/04/2024 8:43 AM EDT): Acceptable during today's exam. He will continue on his current dose of carvedilol, amlodipine and valsartan. Educated on the importance of diet lifestyle to help further assist in reducing blood pressure. The patient was encouraged to follow low-salt low-fat diet, make purposeful strides towards weight loss, and engage in routine aerobic exercise as tolerated. Assessment & Plan (04/21/2024 5:45 PM EST): Insomnia 12/17/2023 Low back pain 12/17/2023 EDOUARD [...] minutes that is not resolved with rest. Assessment & Plan (06/04/2024 8:43 AM EDT): He denies any anginal symptoms at this time. Instructed to call 911 or go to the emergency room should the patient begin to experience chest pain or pressure lasting greater than 10 minutes does not resolve with rest. Ocular migraine 05/07/2020 Visual disturbance 05/07/2020 Obesity (BMI 30-39.9) 10/01/2017 Dyslipidemia 01/27/2016 Vitamin D deficiency 01/27/2016 Paroxysmal atrial fibrillation (CMS/HCC V24, [facility] V28) 10/26/2015 Assessment & Plan (06/04/2024 8:43 AM EDT): With a sinus rhythm today. He endorses minimal recurrence as outlined above. He will continue on his current dose of carvedilol. He is anticoagulated with full dose Eliquis as his weight is greater than 60 kg and his age is less than 80 years. Educated on risks and benefits of continuing with anticoagulation including increased risk for hemorrhage and decreased risk for stroke. Encouraged to seek emergent medical attention should the patient sustain a fall involving a head strike. The patient understands these risks and agrees to continue. Orders: ECG 12 lead Assessment & Plan (04/30/2024 4:19 PM EST): EKG reveals atrial fibrillation with a ventricular heart rate of 98 bpm. The patient endorses that the symptoms started approximately 3 days ago. Associated symptoms of dizziness, lightheadedness and fatigue. He did discuss the potential of going to the emergency room for potential CATE cardioversion however the patient would like to defer at this time. We discussed his [id number] score of 2 for hypertension and age which warrants anticoagulation. The patient has not been started on Humira as he is being treated for ulcerative colitis. We will reach out to his gastroenterology physician Dr. Virgilio Brady at [facility] for shared decision making about long-term anticoagulation. At this time the patient is agreeable to start Eliquis 5 mg twice daily as his age is less than 80 years and his weight is greater than 60 kg. Educated on risks and benefits of continuing with anticoagulation including increased risk for hemorrhage and decreased risk for stroke. Encouraged to seek emergent medical attention should the patient sustain a fall involving a head strike. The patient understands these risks and agrees to continue. His ventricular rates are acceptable at this time. He will continue on his current dose of carvedilol 25 mg twice daily. I did discuss this case with Dr. De La Cruz who recommended either anticoagulation x 4 weeks with cardioversion however in light of the patient's current symptoms of dizziness, lightheadedness and fatigue we have decided to proceed with CATE cardioversion which has been scheduled to be performed on Sunday. The patient will follow-up with me 4 weeks post cardioversion. At that time we can discuss plan for rhythm control such as antiarrhythmic therapy or ablation procedure as well as long-term anticoagulation versus Watchman procedure for stroke reduction. We did discuss triggers for atrial fibrillation including increased caffeine or alcohol intake, dehydration or infection as well as untreated sleep apnea. The patient does inform me that he used to carry a diagnosis of sleep apnea however does not wear CPAP. Likely would benefit from updated sleep study.May 02 at [facility]. I personally spent total of 50 minutes With Mr. Temple and his partner Ondina. We discussed the pathophysiology of atrial fibrillation, his risk for stroke, different ways of stroke reduction including anticoagulation therapy as well as the potential for a Watchman procedure. The patient is aware this will be an ongoing conversation regarding the best way to protect him from stroke in light of his ulcerative colitis and the potential risk for bleeding. Other time spent included both [id number] and bwe-dyyb-lq-face time on the date of the encounter, addressing the above diagnoses . Activities performed included chart review, obtaining/reviewing history, performing a medically necessary evaluation, documentation and counseling and medical decision making of atrial fibrillation and stroke reduction. Orders: ECG 12 lead CBC and differential; Future Basic metabolic panel; Future apixaban (ELIQUIS) 5 mg tablet; Take 1 tablet (5 mg total) by mouth 2 (two) times a day. Transthoracic echocardiogram (TTE) complete with PRN contrast, bubble, strain, and 3D order panel; Future perflutren lipid microsphere (DEFINITY) 1.3 mL in sodium chloride 0.9% 8.7 mL injection Transesophageal echocardiogram (CATE) with possible cardioversion with PRN contrast; Future Prothrombin time with INR; Future Assessment & Plan (04/21/2024 5:45 PM EST): Orders: ECG 12 lead Major depressive disorder, s opal episode, moderate (CMS/HCC V24, CMS/HCC V28) 02/05/2014 Anemia 08/25/2013 Colon polyp 03/10/2013 Encounters Date Type Department Care Team Description 11/13/2024 10:30 AM EDT - 11/13/2024 11:59 PM EDT Hospital Encounter [facility] [address] [place] [address] Knee effusion, left Discharge Disposition: Home or Self Care 11/13/2024 9:45 AM EDT Office Visit [address] [phone] Sergo Nation MD Primary hypertension (Primary Dx); Malaise; Knee effusion, left; Primary insomnia; Major depressive disorder, single episode, moderate (CMS/HCC V24, CMS/HCC V28); Vitamin D deficiency 10/31/2024 Nurse Triage [address] [phone] Sergo Nation MD from Last 3 Months Immunizations Immunization Administration Dates Next Due Influenza Quadravalent, MDCK , 0.5ml, with preservative (Flucelvax) 6mo and older 11/09/2016 Influenza trivalent, 0.5mL ( Fluad) 65yo and older 11/11/2021,11/28/2020,11/26/2019,12/25 Influenza trivalent, 0.5mL ( Fluzone High-dose) 65yo and older 11/17/2023,11/11/2021,12/25/2017 Influenza trivalent, 0.5mL, preservative free (Fluarix; FluLaval; Fluzone) ages 6mo and older (Afluria) 3 years and older 12/14/2015,11/12/2014,11/27/2012 Influenza, Unspecified 12/19/2018,11/06/2013 SuitMe SARS-CoV-2 COVID-19, mRNA, LNP-S, preservative free 11/21/2020,04/26/2020,04/20/2020,04/19 Pneumococcal conjugate 13 va lent (Prevnar 13, PCV13) 2mo and older 01/01/2019 Pneumococcal polysaccharide 23 valent (Pneumovax 23) 2yo and older 04/18/2021 Tdap Tetanus diptheria acell ular pertussis (Boostrix; Adacel) 7yo and older 04/20/2015 Zoster recombinant (Shingrix ) 19yo and older 09/21/2021,06/19/2021 Surgical History Surgery Date Site/Laterality Comments COLONOSCOPY PROCEDURE: ND COLONOSCOPY STOMA DX INCLUDING COLLJ SPEC SPX; COMMENT: age 60 TONSILLECTOMY PROCEDURE: HISTORICAL TONSILLECTOMY BACK SURGERY 08/2013 PROCEDURE: HISTORICAL BACK SURGERY; COMMENT: L4-5 decompression surgery, Dr Valentine. Medical History Medical History Date Comments EDOURAD (obstructive sleep apnea) DX :EDOUARD (obstructive sleep apnea); COMMENT: dental appliance helping HTN (hypertension) DX:HTN (hyper tension) Low back pain DX:Low back pain ; COMMENT: [place] [facility] sport injection therapy GERD (gastroesophageal reflux disease) [...] Date Smoking Tobacco: Never Smokeless Tobacco: Never Tobacco Cessation:Counseling Given: Not Answered Alcohol Use Standard Drinks/Week Comments Yes 0 (1 standard drink = 0.6 oz pur e alcohol) rarely Housing Instability Answer Date Recorde d Are you worried that in the next 2 months you may not have stable housing? No 05/02/2024 Food Access & Nutrition Answer Date Rec orded Do you have access to a vari ety of food including fruits and vegetables? Yes 05/02/2024 Access to Healthcare Answer Date Record ed Within the last 3 months, amy mustafa many times did you visit the emergency department for your medical care? 0 05/02/2024 Health Literacy Answer Date Recorded How often do you need to hav e someone help you when you read instructions, pamphlets, or other written material from your doctor or pharmacy? Never 05/02/2024 Caregiver: How often do you need to have someone help you when you read instructions, pamphlets, or other written material from your doctor or pharmacy? Not on file 05/02/2024 Financial Risk Answer Date Recorded How hard is it for you to pa y for the very basics like food, housing, medical care, and air conditioning / heating? Not very hard 05/02/2024 Transportation Answer Date Recorded Has the lack of transportati on kept you from meetings, work, or from getting things needed for daily living? No Has the lack of transportati on kept you from medical appointments or from getting medications? No 05/02/2024 Social Isolation Answer Date Recorded How often do you feel lonely or isolated from th ose around you? Never 05/02/2024 Food Risk Answer Date Recorded Within the past 12 months we worried whether our food would run out before we got money to buy more. Never true 05/02/2024 Within the past 12 months th e food we bought just didn't last and we didn't have money to get more. Never true 05/02/2024 Dependent Care Answer Date Recorded Do you need help finding or paying for care for your loved ones. For example, children's institution attendant or elderly care for an older adult? Yes 05/02/2024 Education Answer Date Recorded Do you think completing more education or training, like finishing a GED, going to college, or learning a trade, would be helpful for you? No 05/02/2024 Employment and Income Answer Date Recor ded During the last four weeks, have you been actively looking for work? No 05/02/2024 Living Situation Answer Date Recorded What is your living situation? Unrecognized valu e 05/02/2024 Sex and Gender Information Value Date Recorded Sex Assigned at Male 04/25/2022 1:01 AM EST Legal Sex Male 5:10 AM EST Gender Identity Male 04/25/2022 1:01 AM EST Sexual Orientation Straight 04/25/2022 1: 01 AM EST Travel History Travel Start Travel End [facility] 10/20/2024 10/31/2024 Obstetrics History Last Filed Vital Signs Vital Sign Reading Time Taken Comments Blood Pressure 130/80 11/13/2024 9:40 AM EDT Pulse 56 11/13/2024 9:40 AM EDT Temperature 36.5 C (97.7 F) 11/13/2024 9:40 AM EDT Respiratory Rate 14 11/13/2024 9:40 AM EDT Oxygen Saturation 96% 11/13/2024 9:40 AM EDT Inhaled Oxygen Concentration - - Weight 88.5 kg (195 lb) 11/13/2024 9:40 AM EDT Height 175.3 cm (5' 9 ) 11/13/2024 9:40 AM EDT Body Mass Index 28.8 11/13/2024 9:40 AM EDT Plan of Treatment Upcoming Encounters Date Type Department Care Team (Late st Contact Info) Description 12/15/2024 3:30 PM EDT Consult Orthopedics [address] [phone] Lalito Yi PA [address] [place] [phone] 06/05/2025 11:30 AM EDT [facility] [address] [phone] Sergo Nation MD [address] [place] [phone] Health Maintenance Due Date Last Done Comments Medicare Annual Wellness Visit 10/25/2024 10/26/2023 DTaP,Tdap,and Td Vaccines (2 - Td or Tdap) 04/20/2025 04/20/2015 Social Influencers of Health Screening 05/02/2025 05/02/2024 Falls Risk Assessment 11/13/2025 11/13/2024, 024 Hypertension/CHF/CAD Annual BMP Blood Test 11/13/2025 11/13/2024, 05/01/2024, 10/26/2023, Additional history exists RSV Immunization Adult Patients (1 - 1-dose 75+ series) 07/01/2027 Cholesterol Screening (Lipid Panel) 10/24/2027 10/23/2022 Colorectal Cancer Screening: Colonoscopy 01/16/2033 01/16/2023 Hepatitis C Screening Completed 12/02/2012 Pneumococcal Vaccine: 50+ Years Completed 04/18/2021, 01/01/2019 Zoster Vaccines Completed 09/21/2021, 06/19/2021 Depression Screening Completed 11/06/2024, 10/26/19 COVID-19 Vaccine Completed 11/08/2024, , 12/05/2022, Additional history exists Influenza Vaccine Completed 11/08/2024, , 12/05/2022, Additional history exists HIB Vaccines Aged Out [...] age to complete this topic Meningococcal B Vaccine Aged Out No l onger eligible based on patient's age to complete this topic RSV Immunization Patients Under 20 months Aged Out No longer eligible based on patient's age to complete this topic Varicella Vaccines Aged Out No longer eligible based on patient's age to complete this topic Procedures Procedure Name Priority Date/Time Associated Diagnosis Comments CBC WITH AUTO DIFFERENTIAL Routine 11/18/2024 12:16 PM EDT Anemia, unspecified type Other fatigue CBC AND DIFFERENTIAL Routine 11/18/2024 12:16 PM EDT Anemia, unspecified type Other fatigue FOLATE Routine 11/18/2024 12:16 PM EDT Anemia, unspecified type Other fatigue VITAMIN B12 Routine 11/18/2024 12:16 PM EDT Anemia, unspecified type Other fatigue HOMOCYSTEINE, SERUM Routine 11/18/2024 1 2:16 PM EDT Anemia, unspecified type Other fatigue Primary hypertension METHYLMALONIC ACID, SERUM Routine 11/18/2024 12:16 PM EDT Anemia, unspecified type Other fatigue IRON AND TIBC Routine 11/18/2024 12:16 PM EDT Anemia, unspecified type Other fatigue FERRITIN Routine 11/18/2024 12:16 PM EDT Anemia, unspecified type Other fatigue XR KNEE 4+ VIEWS LEFT Routine 11/13/2024 10:43 AM EDT Knee effusion, left CBC WITH AUTO DIFFERENTIAL Routine 11/13/2024 10:29 AM EDT Malaise BASIC METABOLIC PANEL Routine 11/13/2024 10:29 AM EDT Primary hypertension CBC AND DIFFERENTIAL Routine 11/13/2024 10:29 AM EDT Malaise THYROID STIMULATING HORMONE WITH REFLEX TO FREE T4 AND FREE T3 Routine 11/13/2024 10:29 AM EDT Malaise VITAMIN D 25 HYDROXY Routine 11/13/2024 10:29 AM EDT Malaise Vitamin D deficiency DEPRESSION SCREENING Routine 10/26/2023 FALLS RISK ASSESSMENT Routine 10/26/2023 HM COLONOSCOPY Routine 01/16/2023 LIPID PANEL Routine 10/23/2022 HEPATITIS C SCREENING Routine 12/02/2012 from Last 3 Months or Most Recently Relevant to Health Maintenance Results * (ABNORMAL) CBC auto differential (11/18/2024 12:16 PM EDT) Only the most recent of2 resultswithin the time period is included. WBC 5.2 4.8 - 10.8 K/mcL LAB HEMETOLOGY METHOD 11/18/2024 2:45 PM EDT [facility] RBC 4.10(L) 4.50 - 5.50 M/mcL LAB HEMETOLOGY METHOD 11/18/2024 2:45 PM EDT [facility] Hemoglobin 12.7(L) 13.5 - 17.5 g/dL LAB HEMETOLOGY METHOD 11/18/2024 2:45 PM EDT [facility] Hematocrit 38.2(L) 42.0 - 54.0 % LAB HEMETOLOGY METHOD 11/18/2024 2:45 PM EDT [facility] MCV 92.5 79.0 - 98.0 FL LAB HEMETOLOGY METHOD 11/18/2024 2:45 PM EDT [facility] MCH 30.8 27.0 - 32.0 pcg LAB HEMETOLOGY METHOD 11/18/2024 2:45 PM EDT [facility] MCHC 33.2 32.0 - 37.0 g/dL LAB HEMETOLOGY METHOD 11/18/2024 2:45 PM EDT [facility] RDW 12.7 11.0 - 15.0 % LAB HEMETOLOGY METHOD 11/18/2024 2:45 PM EDT [facility] Platelets 215 130 - 400 K/mcL LAB HEMETOLOGY METHOD 11/18/2024 2:45 PM EDT [facility] MPV 11.6(H) 7.0 - 11.0 FL LAB HEMETOLOGY METHOD 11/18/2024 2:45 PM EDT [facility] NRBC 0.0 <1.0 % LAB HEMETOLOGY METHOD 11/18/2024 2:45 PM EDT [facility] NRBC Absolute 0.00 <0.10 K/mcL LAB HEMETOLOGY METHOD 11/18/2024 2:45 PM EDT [facility] Neutrophils Relative 67.0 % LAB HEMETOLOGY METHOD 11/18/2024 2:45 PM EDT [facility] Lymphocytes Relative 23.2 % LAB HEMETOLOGY METHOD 11/18/2024 2:45 PM EDT [facility] Monocytes Relative 6.9 % LAB HEMETOLOGY METHOD 11/18/2024 2:45 PM EDT [facility] Eosinophils Relative 1.9 % LAB HEMETOLOGY METHOD 11/18/2024 2:45 PM EDT [facility] Basophils Relative 0.8 % LAB HEMETOLOGY METHOD 11/18/2024 2:45 PM EDT [facility] Immature Granulocytes Relative 0.2 % LAB HEMETOLOGY METHOD 11/18/2024 2:45 PM EDT [facility] Neutrophils Absolute 3.47 1.50 - 7.00 K/mcL LAB HEMETOLOGY METHOD 11/18/2024 2:45 PM EDT [facility] Lymphocytes Absolute 1.20 1.00 - 5.00 K/mcL LAB HEMETOLOGY METHOD 11/18/2024 2:45 PM EDT [facility] Monocytes Absolute 0.36 0.20 - 1.00 K/mcL LAB HEMETOLOGY METHOD 11/18/2024 2:45 PM EDT [facility] Eosinophils Absolute 0.10 0.00 - 0.50 K/mcL LAB HEMETOLOGY METHOD 11/18/2024 2:45 PM EDT [facility] Basophils Absolute 0.04 0.00 - 0.20 K/mcL LAB HEMETOLOGY METHOD 11/18/2024 2:45 PM EDT [facility] Immature Granulocytes Absolute 0.01 0.00 - 0.03 K/mcL LAB HEMETOLOGY METHOD 11/18/2024 2:45 PM EDT [facility] Blood Venous blood specimen / Unknown Venipuncture / Unknown 11/18/2024 12:16 PM EDT 11/18/2024 12:16 PM EDT us Sergo Nation MD LAB BLOOD ORDERABLES Final Resu lt [facility] [address] [place] [address], * (ABNORMAL) Methylmalonic acid, serum (11/18/2024 12:16 PM EDT) Methylmalonic Acid 0.88(H) <0.40 umol/L 11/22/2024 1:12 PM EDT [facility] Comment: If applicable, any drug confirmation testing reported here was developed and the performance characteristics determined by [facility]. This confirmation testing has not been cleared or approved by the FDA. The laboratory is regulated under CLIA as qualified to perform high-complexity testing. This test is used for patient testing purposes. It should not be regarded as investigational or for research. Test performed at [facility], [address] , [place] [address] Zeynep Reyes MD, PhD - Plsql Developer Blood Venous blood specimen / Unknown Venipuncture / Unknown 11/18/2024 12:16 PM EDT 11/18/2024 12:16 PM EDT Sergo Nation MD LAB BLOOD ORDERABLES Final Resu lt [facility] [address] [place] [address] * Iron and TIBC (11/18/2024 12:16 PM EDT) Iron 80 50 - 160 mcg/dL LAB CHEMISTRY METHOD 11/18/2024 5:12 PM EDT [facility] TIBC 316 250 - 450 mcg/dL LAB CHEMISTRY METHOD 11/18/2024 5:12 PM EDT [facility] Iron Saturation 25 20 - 50 % LAB CHEMISTRY METHOD 11/18/2024 5:12 PM EDT [facility] Blood Venous blood specimen / Unknown Venipuncture / Unknown 11/18/2024 12:16 PM EDT 11/18/2024 12:16 PM EDT us Sergo Nation MD LAB BLOOD ORDERABLES Final Resu lt [facility] [address] [place] [address], [place] [phone] * Homocysteine, total (11/18/2024 12:16 PM EDT) Homocysteine 9.1 3.2 - 10.7 mcmol/L LAB CHEMISTRY METHOD 11/18/2024 5:41 PM EDT [facility] Blood Venous blood specimen / Unknown Venipuncture / Unknown 11/18/2024 12:16 PM EDT 11/18/2024 12:16 PM EDT us Sergo Nation MD LAB BLOOD ORDERABLES Final Resu lt Performing Organization Address City/[facility]/ZIP Co de Phone Number [facility] [address] [place] [address], [place] [phone] * (ABNORMAL) Folate (11/18/2024 12:16 PM EDT) Folate >20.0(H) 2.8 - 17.0 ng/ml LAB CHEMISTRY METHOD 11/18/2024 5:41 PM EDT [facility] Blood Venous blood specimen / Unknown Venipuncture / Unknown 11/18/2024 12:16 PM EDT 11/18/2024 12:16 PM EDT us Sergo Nation MD LAB BLOOD ORDERABLES Final Resu lt [facility] [address] [place] [address], [place] [phone] * (ABNORMAL) Ferritin (11/18/2024 12:16 PM EDT) Ferritin 22(L) 26 - 388 ng/mL LAB CHEMISTRY METHOD 11/18/2024 5:41 PM EDT [facility] Blood Venous blood specimen / Unknown Venipuncture / Unknown 11/18/2024 12:16 PM EDT 11/18/2024 12:16 PM EDT us Sergo Nation MD LAB BLOOD ORDERABLES Final Resu lt Performing Organization Address [facility]/ZIP Co de Phone Number [facility] [address] [place] [address], [place] [phone] * Vitamin B12 (11/18/2024 12:16 PM EDT) [facility] Vitamin B-12 393 250 - 900 pcg/mL LAB CHEMISTRY METHOD 11/18/2024 5:41 PM EDT [facility] Blood Venous blood specimen / Unknown Venipuncture / Unknown 11/18/2024 12:16 PM EDT 11/18/2024 12:16 PM EDT Sergo Nation MD LAB BLOOD ORDERABLES Final Resu lt Performing Organization Address [facility]/ZIP Co de Phone Number [facility] [address] [place] [address], [place] [phone] * XR Knee 4+ Views Left (11/13/2024 10:43 AM EDT) Anatomical Region Laterality Modality Lower Extremities, Knee Left Radiogra phic Imaging 11/13/2024 3:27 PM EDT Impressions 11/13/2024 3:34 PM EDT Findings suggestive of prepatellar and pretibial bursitis. -------- FINAL REPORT -------- Dictated By: Alexa Edouard Dictated Date: 11/13/2024 15:27 ET Assigned Physician: Alexa Edouard Reviewed and Electronically Signed By: Alexa Edouard Signed Date: 11/13/2024 15:34 ET Workstation ID: [id number] Transcribed By: Self Edit Transcribed Date: 11/13/2024 15:27 ET Narrative 11/13/2024 3:34 PM EDT EXAM: Left knee x-ray HISTORY: Left knee pain and effusion. Possible bursitis. COMPARISON: None VIEWS: 4 views performed, AP and tunnel views performed weightbearing. FINDINGS: Prominent soft tissue swelling anterior to the knee suggestive of prepatellar and pretibial bursitis. Very mild joint space narrowing in the medial compartment. No acute fracture or malalignment. No destructive bone lesion. No significant joint effusion. Procedure Note Alexa Edouard MD - 11/13/2024 EXAM: Left knee x-ray HISTORY: Left knee pain and effusion. Possible bursitis. COMPARISON: None VIEWS: 4 views performed, AP and tunnel views performed weightbearing. FINDINGS: Prominent soft tissue swelling anterior to the knee suggestive ofprepatellar and pretibial bursitis. Very mild joint space narrowing in themedial compartment. No acute fracture or malalignment. No destructive bonelesion. No significant joint effusion. IMPRESSION: Findings suggestive of prepatellar and pretibial bursitis. -------- FINAL REPORT -------- Dictated By: Alexa Edouard Dictated Date: 11/13/2024 15:27 ET Assigned Physician: Alexa Edouard Reviewed and Electronically Signed By: Alexa Edouard Signed Date: 11/13/2024 15:34 ET Workstation ID: [id number] Transcribed By: Self Edit Transcribed Date: 11/13/2024 15:27 ET us Sergo Nation MD IMG XR PROCEDURES Final Result * Thyroid stimulating hormone with reflex to free t4 and free t3 (11/13/2024 10:29 AM EDT) TSH 1.36 0.40 - 4.00 mcIU/mL LAB CHEMISTRY METHOD 11/13/2024 1:57 PM EDT [facility] ([facility]) [facility] Blood Venous blood specimen / Unknown Venipuncture / Unknown 11/13/2024 10:29 AM EDT 11/13/2024 10:29 AM EDT us Sergo Nation MD LAB BLOOD ORDERABLES Final Resu lt [facility] [address] [place] [address], [place] [phone] * Vitamin D 25 hydroxy (11/13/2024 10:29 AM EDT) [facility] Vit D, 25-Hydroxy 40.2 30.0 - 80.0 ng/mL LAB CHEMISTRY METHOD 11/13/2024 1:56 PM EDT [facility] Blood Venous blood specimen / Unknown Venipuncture / Unknown 11/13/2024 10:29 AM EDT 11/13/2024 10:29 AM EDT us Sergo Nation MD LAB BLOOD ORDERABLES Final Resu lt [facility] [address] [place] [address], [place] [phone] * (ABNORMAL) Basic metabolic panel (11/13/2024 10:29 AM EDT) [facility] Sodium 141 133 - 145 mmol/L LAB CHEMISTRY METHOD 11/13/2024 12:54 PM EDT [facility] Potassium 4.8 3.5 - 5.5 mmol/L LAB CHEMISTRY METHOD 11/13/2024 12:54 PM [facility] Chloride 107 96 - 110 mmol/L LAB CHEMISTRY METHOD 11/13/2024 12:54 PM T [facility] CO2 28 21 - 32 mmol/L LAB CHEMISTRY METHOD 11/13/2024 12:54 PM T [facility] Anion Gap 6 3 - 11 LAB CHEMISTRY METHOD 11/13/2024 12:54 PM EDT [facility] Glucose 62(L) 70 - 100 mg/dL LAB CHEMISTRY METHOD 11/13/2024 12:54 PM [facility] BUN 13 5 - 25 mg/dL LAB CHEMISTRY METHOD 11/13/2024 12:54 PM EDT [facility] Creatinine 0.96 0.70 - 1.30 mg/dL LAB CHEMISTRY METHOD 11/13/2024 12:54 PM EDT [facility] eGFR 84 >=60 mL/min/1. 73m2 LAB CHEMISTRY METHOD 11/13/2024 12:54 PM EDT [facility] Comment:Calculation based on the Chronic Kidney Disease Epidemiology Collaboration (CKD-EPI) equation refit without adjustment for race. BUN/Creatinine Ratio 13.5 LAB CHEMISTRY METHOD 11/13/2024 12:54 PM EDT [facility] Calcium 8.6 8.5 - 10.5 mg/dL LAB CHEMISTRY METHOD 11/13/2024 12:54 PM EDT [facility] Blood Venous blood specimen / Unknown Venipuncture / Unknown 11/13/2024 10:29 AM EDT 11/13/2024 10:29 AM EDT Sergo Nation MD LAB BLOOD ORDERABLES Final Resu lt [facility] [address] [place] [address], * Falls Risk Assessment (10/26/2023) [facility] Falls Risk Assessment abstracted [facility] [employer] Final Result * Depression Screening (10/26/2023) [facility] Depression Screening abstracted [facility] [employer] Final Result * Colonoscopy (01/16/2023) [facility] Colonoscopy no interpretation , abstracted Anatomical Region Laterality Modality Other [facility] [employer] Final Result * (ABNORMAL) Lipid panel (10/23/2022) [facility] LDL/HDL Ratio 5(A) 0 - 4 Triglycerides 146 0 - 150 mg/dL Cholesterol 170 0 - 200 mg/dL HDL 34(A) >=40 mg/dL LDL Cholesterol 107(A) 0 - 100 mg/dL Blood Venous blood specimen / Unknown Historical Provider LAB BLOOD ORDERABLES Hemalatha l Result * Hepatitis C Screening (12/02/2012) Hepatitis C Screening abstracted Historical Provider HEALTH MAINTENANCE Final Result from Last 3 Months or Most Recently Relevant to Health Maintenance Insurance MEDICARE [facility] Care Teams [employer] Relationship Specialty Start Date End Date Sergo Nation MD [address] [place] [address] PCP - General Internal Medicine 04/18/24
--- OUTSIDE RECORDS SUMMARY | 2024-11-25 13:13 | XMS_ITS | Patient Health Record ---
Author Organization [facility] Address [address] [place] [address] Care Team Providers Care Technical Account Representative Name Role Phone Sergo Nation MD Primary Care Provider Virgilio Luis Jr Allergies No Known Allergies Results Component Value Reference Range Notes Complete Blood Count no Diff Reviewed date:01/03/2024 09:44:12 AM Interpretation: Performing Lab:[facility], [address] [place] [phone] Notes/Report: White Blood Count 5.0 4.8-10.8 X10*3/uL [...] Panel Reviewed date:01/03/2024 09:44:38 AM Interpretation: Performing Lab:[facility], [address] [place] [phone] Notes/Report: Bilirubin Total 0.4 0.0-1.0 mg/dL Bilirubin Direct 0.1 0.0-0.5 mg/dL Aspartate Amino Transferase 26 5-37 U/L Alanine Aminotransferase 23 0-40 U/L Total Protein 6.3 6.5-8.0 g/dL Albumin Level 3.9 3.5-5.0 g/dL Alkaline Phosphatase 67 39-117 U/L Blood Urea Nitrogen Reviewed date:01/03/2024 09:44:33 AM Interpretation: Performing Lab:[address] [phone] Notes/Report: Blood Urea Nitrogen 13 9-16 mg/dL Creatinine Reviewed date:01/03/2024 09:44:27 AM Interpretation: Performing Lab:[address] [phone] Notes/Report: Creatinine 0.83 0.5-1.4 mg/dL Estimated Glomerular Filt Rate > 60 NOTE: For -Spanish individuals, multiply the result by 1.210. Chronic Kidney Disease: Estimated GFR < 60 mL/min/1.73m2 Severe Kidney Disease: Estimated GFR < 15 mL/min/1.73m2 Lipase Reviewed date:01/03/2024 09:44:22 AM Interpretation: Performing Lab:[address] [phone] Notes/Report: Lipase 13 8-78 U/L CT abdomen pelvis w con Reviewed date:01/11/2024 03:33:10 PM Interpretation: Performing Lab: Notes/Report: [address] [address] [address] Scan Report Signed Patient: Kevan Temple MR#: [id number] 438 : 1950 Acct:[id number] Age/Sex: 73 / M ADM Date: 01/10/24 Loc: HO.CT Attending Dr: Virgilio Brady MD Ordering Physician: Virgilio Brady MD Date of Service: 01/10/24 Procedure(s): CT abdomen pelvis w IV con Accession Number(s): [id number] cc: Virgilio Brady MD; Sergo Nation III, [...] 01/11/2024 02:50 PM [facility] Dictated By: Pj Butler MD Signed By: <Electronically signed by Pj Martinez MD in OV> 01/11/24 1450 DD/ 1543 TD/TT: 01/10/24 1603 Machine Icer: Leukocytes Stool Qualitative Reviewed date:03/20/2024 10:05:11 AM Interpretation: Performing Lab:[facility], [address] [place] [phone] Notes/Report: Leukocytes Stool Qualitative NEGATIVE NEGATIVE Ova and Parasite Reviewed date:03/26/2024 08:16:04 AM Interpretation: Performing Lab:[facility], [address] [place] [phone] Notes/Report: Ova and Parasite SEE NOTE OVA AND PARASITES, CONC AND PERM SMEAR Micro Number: [id number] Test Status: Final Specimen Source: Stool Specimen [...] infection. For additional information, please refer to https://education.[employer]/faq/FAQ20 3 (This link is being provided for informational/ educational purposes only.) THIS TEST WAS PERFORMED AT: [place] [address] JOVANNY ROY MD CDiff Gene PCR Reviewed date:03/20/2024 10:04:54 AM Interpretation: Performing Lab:[facility], [address] [place] [phone] Notes/Report: CDiff Gene PCR POSITIVE Negative Additional C. difficile toxin testing to be performed. CDiff Toxin Reviewed date:03/20/2024 10:05:01 AM Interpretation: Performing Lab:[facility], [address] [place] [phone] Notes/Report: CDiff Toxin Negative Negative CDIFF Interpretation SEE NOTE Likely C. difficile colonization. Continue contact precautions. GI PANEL Reviewed date:03/20/2024 02:18:35 PM Interpretation: Performing Lab:[facility], [address] [place] [phone] Notes/Report: Campylobacter Not Detected Not Detect. Plesiomonas [...] is performed by Multiplexed PCR, utilizing the [employer] Array. Pathology Reviewed date:03/28/2024 12:02:23 AM Interpretation: Performing Lab:[facility], [address] [place] [phone] Notes/Report: Complete Blood Count Auto Di ff Reviewed date:04/07/2024 08:45:34 AM Interpretation: Performing Lab:[facility], [address] [place] [phone] Notes/Report: White Blood Count 8.3 4.8-10.8 X10*3/uL [...] te Reviewed date:04/07/2024 08:45:26 AM Interpretation: Performing Lab:[facility], [address] [place] [phone] Notes/Report: Erythrocyte Sedimentation Rate 7 0-15 MM/HR Patients with polycythemia and many hemoglobin abnormalities may have depressed sed rates whereas patients with anemia may have elevated sed rates. Liver Panel Reviewed date:04/07/2024 08:45:20 AM Interpretation: Performing Lab:[facility], [address] [place] [phone] Notes/Report: Bilirubin Total 0.6 0.0-1.0 mg/dL Bilirubin Direct 0.2 0.0-0.5 mg/dL Aspartate Amino Transferase 19 5-37 U/L Alanine Aminotransferase 16 0-40 U/L Total Protein 6.0 6.5-8.0 g/dL Albumin Level 3.6 3.5-5.0 g/dL Alkaline Phosphatase 48 39-117 U/L C Reactive Protein Reviewed date:04/07/2024 08:45:57 AM Interpretation: Performing Lab:[facility], [address] [place] [phone] Notes/Report: C Reactive Protein 0.24 < or = 0.50 mg/dL Lipase Reviewed date:04/07/2024 08:45:46 AM Interpretation: Performing Lab:[facility], [address] [place] [phone] Notes/Report: Lipase 83 8-78 U/L [facility] Reviewed date:04/17/2024 09:29:45 AM Interpretation: Performing Lab:[facility], [address] [place] [phone] Notes/Report: [facility] SEE NOTE SEE SCANN ED RESULTS IN EMR Hepatitis A,B,C Profile Reviewed date:04/07/2024 08:45:40 AM Interpretation: Performing Lab:[address] [phone] Notes/Report: Hepatitis A Antibody IgM Nonreactive Nonreactive IgM antibodies to HAV not detected; does not exclude early acute or recovered HAV infection. Hepatitis B Surface Antibody NONREACTIVE Nonreactive Nonreactive: < 8.00 mIU/mL Hepatitis B Core Antibody Nonreactive Nonreactive Hepatitis C Antibody Nonreactive Nonreactive Antibodies to HCV not detected; does not exclude early acute HCV infection. Hepatitis B Surface Antigen Negative Negative Thiopurine Methyltransferase Reviewed date:04/14/2024 08:37:37 PM Interpretation: Performing Lab:[address] [phone] Notes/Report: TPMT Activity 16 Result Units: nmol/hr/mL RBC Reference Range for TPMT Activity: >12 Normal 4-12 Heterozygote or low metabolizer <4 Homozygote Deficient Range This test was developed and its analytical performance characteristics have been determined by [employer]. It has not been cleared or approved by FDA. This assay has been validated pursuant to the CLIA regulations and is used for clinical purposes. THIS TEST WAS PERFORMED AT: [facility] [address] [place] [address] WILIAN BLOCK MD,PHD,SCOTT T Spot TB Reviewed date:04/10/2024 07:45:31 AM Interpretation: Performing Lab:[address] [address] Notes/Report: TSpotTB Negative Negative A negative test result does not exclude the possibility of exposure to or infection with Mycobacterium tuberculosis (M. tuberculosis). Patients with recent exposure to TB infected individuals exhibiting a negative T-SPOT.TB result should be considered for retesting within 6 weeks or if other relevant clinical symptoms indicate. Results from T-SPOT.TB testing must be used in conjunction with each individual's epidemiological history, current medical status, and results of other diagnostic evaluations. The T-SPOT.TB test is qualitative and results are reported as positive, borderline, or negative, given that the test controls perform as expected. In line with the Centers for Disease Control and Prevention's 2010 recommendation to report quantitative measurements alongside the qualitative result, the laboratory provides spot counts for informational purposes only. The T-SPOT.TB test should not be interpreted as a quantitative test. TS Panel A 0 TS Panel B 0 TS Negative Control Passed TS Positive Control Passed For additional information, please refer to http://education.[employer]/faq/FWE717 (This link is being provided for informational/ educational purposes only.) THIS TEST WAS PERFORMED AT: [facility] [address] [address] NIDA IRENE MD,PHD Reason For Referral No Information Medications Medication SIG (Take, Route, Frequency, Duration) Notes Start Date End Date Status Fidaxomicin 200 MG 1 tablet Orally Twic e a day for 10 day(s) 03/20/2024 Active Omeprazole 20 MG Oral for 90 A ctive MiraLax (colon prep) 17 GM/SCOOP mixed with Gatorade or Crystal Light Orally begin at 5:00 p.m. the day before the procedure for 1 day 03/07/2024 Active buPROPion HCl ER (XL) 150 MG Oral for 90 Active Vitamin D3 25 MCG (1000 UT) 1 capsule Or ally Once a day Active Eliquis 5 MG Oral for 30 Days Active predniSONE 10 MG 3 tablets daily for 1 week then taper by 1 tablet weekly. Orally Once a day 06/25/2024 Active Humira (2 Pen) 40 MG/0.4ML 0.4 mL Subcut aneous every 2 weeks 03/27/2024 Active Humira-CD/UC/HS Starter 80 MG/0.8ML as directed Subcutaneous 03/27/2024 Act vickie Valsartan 320 MG TAKE 1 TABLET BY ANASTASIA TH DAILY Oral for 30 Days Active buPROPion HCl ER (XL) 150 MG Oral for 90 Days Active amLODIPine Besylate 5 MG Oral for 90 Days Active Valsartan 320 MG Oral for 30 Days Active Zolpidem Tartrate 10 MG TAKE ONE TABLET BY MOUTH AT BEDTIME NEEDED FOR INSOMNIA. Oral for 28 Active amLODIPine Besylate 5 MG Oral for 90 Active Valsartan 320 MG Oral for 30 A ctive Carvedilol 25 MG TAKE 1 TABLET BY ANASTASIA TH TWICE DAILY WITH MEALS Oral for 90 Active levoFLOXacin 500 MG 1 tablet Orally Once a day for 7 days 01/11/2024 Active predniSONE 10 MG 4 tablets daily for 1 week then decrease by 1 tablet weekly Orally Once a day for 30 day(s) 01/11/2024 Active Doxycycline Hyclate 100 MG Oral for 10 Active Mesalamine ER 0.375 GM 4 capsules in the morning Orally Once a day for 30 days 01/17/2023 Active Humira (2 Pen) 40 MG/0.4ML Subcutaneous for 28 Days Active Zolpidem Tartrate 10 MG Oral for 28 Days Active predniSONE 10 MG 2 tablets Orally Onc e a day for 30 day(s) 03/07/2024 Active Mesalamine ER 0.375 GM TAKE 1 CAPSULE BY MOUTH FOUR TIMES DAILY Oral for 30 Days Active metroNIDAZOLE 500 MG 1 tablet Orally Thr ee times a day for 7 days 01/11/2024 Active Carvedilol 25 MG Oral for 90 Days Active Ustekinumab 130 MG/26ML 520 mg Intraveno us once for 1 days 09/02/2024 Active Vitamin B12 Active Immunizations Vaccine Route Administration Date Status Comme nts Influenza Unknown 12/19/2022 Administered Influenza Unknown 11/13/2023 Administered Social History Tobacco Use: Social History Observation Description Date Details (start date - stop date) Never Smoker NA - NA Tobacco Use/Smoking Question Answer Notes Patient is [...] Never (0 point) Points 0 Interpretation Negative Problems Problem Type SNOMED Code ICD Code Onset Dates Problem Status W/U Status Risk Notes Problem 59978056 Rectal bleeding (K62.5) Active confirmed Problem 071485467 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 Problem 63452677 Other ulcerative colitis with rectal bleeding (K51.811) Active confirmed Problem 1940198 Diverticulitis o f large intestine without perforation or abscess with bleeding (K57.33) Active confirmed Problem 963015352 Diverticulitis (K57.92) Active confirmed Problem 792214400 Abnormal CT scan , gastrointestinal tract (R93.3) Active confirmed Problem 08013629 Colitis (K52.9) Active confirmed Problem 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 Problem 32427719 Diarrhea, unspecified type (R19.7) Active confirmed Problem 370910051 LLQ pain (R10.32) Active confirmed Vital Signs Temperature 98.6 degrees Fahrenheit 08/13/2024 Blood pressure diastolic 01 mm Hg 08/13/2024 Height 68 in 08/13/2024 Blood pressure systolic 001 mm Hg 08/13/2024 Weight 190 lbs 08/13/2024 BMI 28.89 kg/m2 08/13/2024 Encounters Encounter Location Date Provider Diagnosis [facility] [address] [place] [phone] 03/25/2024 Virgilio Bardy Jr Colon polyps K63.5 and Colitis K52.9 [facility] [address] [place] [phone] 01/11/2024 Virgilio Brady Jr Colitis K52.9 [facility] [address] [place] [phone] 08/13/2024 Virgilio Brady Jr Other ulcerative colitis with rectal bleeding K51.811 [facility] [address] [place] [phone] 01/03/2024 Virgilio Brady Jr [facility] [address] [place] [phone] 01/11/2024 Virgilio Brady Jr [facility] [address] [place] [phone] 03/07/2024 Virgilio Brady Jr Colitis K52.9 [facility] [address] [place] [phone] 03/20/2024 Virgilio Brady Jr [facility] [address] [place] [phone] 03/27/2024 Virgilio Brady Jr Other ulcerative colitis with rectal bleeding K51.811 [facility] [address] [place] [phone] 04/11/2024 Virgilio Brady Jr [facility] [address] [place] [phone] 04/23/2024 Virgilio Brady Jr [facility] [address] [place], [place] [address] 05/01/2024 Virgilio Brady Jr [facility] [address] [place], [place] [address] 05/06/2024 Virgilio Brady Jr [facility] [address] [place], [place] [address] 06/24/2024 Virgilio Brady Jr [facility] [address] [place], [place] [address] 08/28/2024 Virgilio Brady Jr [facility] [address] [place], [place] [address] 09/02/2024 Virgilio Brady Jr [facility] [address] [place], [place] [address] 09/16/2024 Virgilio Brady Jr [facility] [address] [place], [place] [address] 09/19/2024 Virgilio Brady Jr [facility] [address] [place], [place] [address] 11/06/2024 Virgilio Brady Jr Assessments Encounter Date Diagnosis (ICD Code) Assessment Notes Treatment Notes Treatment Clinical Notes Section Notes 03/25/2024 Colon polyps (ICD-10 - K63.5) 03/25/2024 Colitis (ICD-10 - K52.9) 01/11/2024 Colitis (ICD-10 - K52.9) We reviewed his clinical course in great detail today. This includes his CT scans, lab results, and colonoscopy results. clinical question here which is not clear is stomach whether this represents left-sided colitis due to IBD versus are reactive colitis from prior diverticulitis, or possible smoldering chronic diverticulitis. Today we discussed options. I have recommended a trial of prednisone which should help any underlying IBD. He can continue mesalamine at this time. We may ultimately need repeat colonoscopy to help guide therapy and we discussed this today. We have called radiology for an expedited reading on his CAT scan to help guide therapy. We will follow up on this later today. He understands this and we discussed the possibility of a second opinion or surgical referral for further evaluation depending on the findings. Today's visit was 60 minutes. 08/13/2024 Other ulcerative colitis with rectal bleeding (ICD-10 - K51.811) At this time, he clearly needs to switch therapy. Regardless of what his drug/antibody levels are this medication is not controlling his colitis well. I have recommended starting ustekinumab to try and get his colitis in remission and under better control and allow him to get off prednisone. We discussed this in detail today. We have recommended referral to the [facility] because of his refractory symptoms and he is agreeable with this. Referral will be made as soon as possible. Today's visit was 30 minutes 03/07/2024 Colitis (ICD-10 - K52.9) 03/27/2024 Other ulcerative colitis with rectal bleeding (ICD-10 - K51.811) Plan Of Treatment Pending Test Test Name Order Date BUN 12/21/2022 BUN 11/16/2023 BUN 03/19/2023 CREATININE 12/21/2022 CREATININE 03/19/2023 LIVER PROFILE 03/19/2023 LIVER PROFILE 03/27/2024 LIVER PROFILE 11/16/2023 LIPASE 11/16/2023 LIPASE 03/19/2023 LIPASE 03/27/2024 CRP 03/27/2024 CRP 03/19/2023 CBC w DIFF 12/21/2022 CBC w/o DIFF 03/27/2024 CBC w/o DIFF 11/16/2023 CBC w/o DIFF 03/19/2023 SED RATE (ESR) 03/19/2023 SED RATE (ESR) 03/27/2024 HEPATITIS A,B,C PROFILE 03/27/2024 STOOL WBC 03/07/2024 OVA & PARASITES (O&P) 03/07/2024 CT ABD & PELVIS WITH CONTRAST 03/19/2023 CT ABD & PELVIS WITH CONTRAST 11/16/2023 CT ABD & PELVIS WITH CONTRAST 12/21/2022 PROMETHEUS IBD SGI 03/27/2024 TSH REFLEX FREE T4 12/21/2022 STOOL WBC 12/21/2022 T SPOT TB 03/27/2024 C DIFFICILE RFLX PCR 03/07/2024 CALPROTECTIN, STOOL 03/19/2023 CALPROTECTIN, STOOL 12/21/2022 Thiopurine Methyltransferase 03/27/2024 GI PANEL 03/07/2024 Future Test Test Name Order Date UPPER GI ENDOSCOPY 01/04/2023 COLONOSCOPY 01/04/2023 CREATININE 11/19/2023 COLONOSCOPY 03/07/2024 Next Appt Details Provider Name:Virgilio Stroud Atul worrell Jr, 02/11/2025 09:20:00 AM, [address] [facility], [address], [place], [address], Insurance Providers Payer Name Payer Address Payer Phone Subscriber Number Group Number Insured Name Patient Relationship to Insured Coverage Start Date Coverage End Date MEDICARE OF [place] [address] [place] [address] [id number] KEVAN TEMPLE Self - patient is the insured [employer] ATT[employer] CLAIMS [address] [place] [address] [id number] KEVAN TEMPLE Self - patient is the insured Medical (General) History Medical History History ICD Code Hypertension Depression Reddy's esophagus, EGD fundic gland polyps, and no H. pylori, Reddy's with no dysplasia, three-year followup Colonoscopy 01/18 colitis fr om rectum to 40 cm, biopsies show chronic colitis, mesalamine started 01/18 Diverticulitis, uncomplicated 07/19 Surgical History Surgery Date(Month/Year) back surgery
== END 2024-11-25 12:28 | disposition home or self-care (01) ==
PROVIDERS: Visit Provider Internal Medicine
DX: M70.52 Other bursitis of knee, left knee (principal)

== ENCOUNTER → 2024-11-25 11:54 | Outpatient (BNVA) | payer MEDICARE, SELFPAY | PROVIDERS: Visit Provider Internal Medicine | DX: M70.52 Other bursitis of knee, left knee (principal) | CPT/HCPCS: 99202 ==